=== PATIENT | male | born 1960 | race Caucasian/White ===

== ENCOUNTER → 2017-09-08 | Outpatient (CLI) | payer MEDICARE ==
[2017-09-08 11:59] LABS: HCT 44.2 % (39.0-53.0); HGB 15.3 gm/dL (13.0-17.5); MCHC 34.7 g/dL (31.0-37.0); MCV 89.3 fL (80.0-100.0); Mean Platelet Volume 7.7; Platelet Count 188 k/uL (150-450); RBC 4.95 m/uL (4.30-5.90); WBC 4.9 k/uL (3.8-10.6)
[2017-09-08 12:01] LABS: Appearance,Urine Clear (Clear); Bilirubin,Urine Negative (Negative); Blood,Urine Negative (Negative); Color,Urine Light Yellow; Glucose,Urine (UA) Negative (Negative); Ketones,Urine Negative (Negative); Leukocyte Esterase,Urine Negative (Negative); Nitrite,Urine Negative (Negative); Protein,Urine Negative (Negative); Specific Gravity,Urine 1.007 (1.001-1.035); Urobilinogen,Urine <2.0 mg/dL (<2.0)
[2017-09-08 12:12] LABS: INR 1.1 (<1.2); Partial Thromboplastin Time 24.5 sec (22.0-30.0); Prothrombin Time 10.3 sec (9.0-12.0)
[2017-09-08 12:22] LABS: ALT 59 U/L (21-72); AST 34 U/L (17-59); Albumin 4.3 g/dL (3.5-5.0); Alkaline Phosphatase 72 U/L (38-126); Anion Gap 11 mmol/L; Blood Urea Nitrogen 14 mg/dL (9-20); Calcium 9.7 mg/dL (8.4-10.2); Carbon Dioxide 29 mmol/L (22-30); Chloride 100 mmol/L (98-107); Glucose 91 mg/dL (74-99); Potassium 3.9 mmol/L (3.5-5.1); Sodium 140 mmol/L (137-145); Total Bilirubin 0.8 mg/dL (0.2-1.3); Total Protein 7.2 g/dL (6.3-8.2)
== END | disposition home or self-care (01) ==
LOC: LABPAT 10:56
PROVIDERS: ATTEND Orthopaedic Surgery
DX: Z01.812 Encounter for preprocedural laboratory examination (principal)
CPT/HCPCS: 36415; 80053; 81003; 85027; 85610; 85730; 87070

== ENCOUNTER 2017-09-15 07:30 | Inpatient (IN) | payer MEDICARE ==
[2017-09-08 14:22] VITALS: BMI 33.6
[~2017-09-15 07:30] MED LIST: ACETAMINOPHEN TAB 500 MG TAB PO ONE; MELOXICAM 7.5 MG TAB PO ONE; MIDAZOLAM 2 MG/2 ML VIAL IV PRN; MORPHINE SULFATE 4 MG/ML SYRINGE IV PRN; ROPIVACAINE 246.25 MG, EPINEPHrine 0.5 MG, KETOROLAC 30 MG, cloNIDine HCL/PF 80 MCG, WA... MISCELLANE ONE; TRANEXAMIC ACID 1,000 MG in SODIUM CHLORIDE 0.9% 50 ML IVPB ONE; ceFAZolin IN SWFI 2 GM/20 ML SYRINGE IVP ONE
[2017-09-15] MEDS ORDERED: LIDOCAINE 1% 20 ML VIAL (10MG/ML) FOR IV START INTRADERMA ONE (09:00)
[2017-09-15] MEDS: LACTATED RINGERS 1,000 ML IV SCH (09:00)
[2017-09-15] MEDS ORDERED: ONDANSETRON 4 MG/2 ML VIAL IVP STA (09:04)
[2017-09-15] MEDS ORDERED: DEXAMETHASONE SOD PHOSPHATE 10 MG/ML 1 ML VIAL IV ONE (09:04)
[2017-09-15] MEDS ORDERED: fentaNYL (PF) 50 MCG/ML 2 ML AMP ONE (09:05)
[2017-09-15] MEDS ORDERED: NA PHOS,M-B/NA PHOS,DI-BA 133 ML ENEMA RECTAL PRN (09:28)
[2017-09-15] MEDS ORDERED: hydrOXYzine PAMOATE 25 MG CAP PO PRN (09:28)
[2017-09-15] MEDS ORDERED: ONDANSETRON 4 MG/2 ML VIAL IVP PRN (09:28)
[2017-09-15] MEDS ORDERED: NALOXONE 0.4 MG/ML 1 ML VIAL IV PRN (09:28)
[2017-09-15] MEDS ORDERED: DIAZEPAM 5 MG TAB PO PRN ×2 (09:28)
[2017-09-15] MEDS ORDERED: HYDROcodone/APAP 5-325MG 1 EACH TAB PO PRN (09:28)
[2017-09-15] MEDS ORDERED: MAGNESIUM HYDROXIDE 2,400 MG/10 ML CUP PO PRN (09:28)
[2017-09-15] MEDS ORDERED: MORPHINE SULFATE/PF 10MG/10ML VL IVP PRN ×3 (09:28)
[2017-09-15] MEDS ORDERED: BISACODYL 10 MG SUPP RECTAL PRN (09:28)
[2017-09-15] MEDS ORDERED: PROPOFOL 10 MG/ML 20 ML VIAL IV ONE (10:06)
[2017-09-15] MEDS ORDERED: MIDAZOLAM 2 MG/2 ML VIAL ONE (10:06)
[2017-09-15] MEDS ORDERED: GLYCOPYRROLATE 0.2 MG/ML 2 ML VIAL ONE (10:06)
[2017-09-15] MEDS ORDERED: SODIUM CHLORIDE 0.9% 100 ML BAG ONE (10:06)
[2017-09-15] MEDS ORDERED: ePHEDrine SULFATE/0.9% NACL/PF 50 MG/5 ML SYRINGE IV ONE (10:06)
[2017-09-15] MEDS ORDERED: TRANEXAMIC ACID 1,000 MG/10 ML VIAL ONE (10:06)
[2017-09-15] MEDS ORDERED: ceFAZolin 3,000 MG in SODIUM CHLORIDE 0.9% IRRIGATIO 3,000 ML IRRIGATION ONE (10:44)
--- NOTE | 2017-09-15 11:50 | P.OP ---
Date of Procedure: 09/15/17 Preoperative Diagnosis: Severe osteoarthritis left knee Postoperative Diagnosis: Severe osteoarthritis left knee Procedure(s) Performed: Left total knee arthroplasty Implants: Cunningham [employer] Nephew Oxinium femoral component size 6, left posterior stabilized Cunningham [employer] Nephew Stormy II left nonporous tibial baseplate size 6 Cunningham [employer] Nephew size 9 mm Legion constrained articular insert, size 5-6 Cunningham [employer] Nephew Stormy II resurfacing patellar component, 32 mm x 7.5mm All components were cemented using Vanessa bone cement.. The articulation is Oxinium on polyethylene. Anesthesia: spinal Surgeon: Chaitanya Kruse Vocational Rehabilitation Counselor #1: Tahira Sher Estimated Blood Loss (ml): 50 Pathology: other (Bone and cartilage) Condition: stable Disposition: PACU Indications for Procedure: After failure of conservative treatment we discussed the surgical and nonsurgical treatment options at length. Patient wishes to proceed with a total knee arthroplasty. Complications specific to this procedure were discussed at length, including but not limited to infection, bleeding, stiffness , and nerve injury. Patient is aware of all these complications and informed consent was obtained Operative Findings: The operative findings are consistent with severe osteoarthritis of the left knee Description of Procedure: Patient was seen in the preoperative area consent was reviewed and operative site was marked with a skin marker. An adductor canal pain catheter was placed by anesthesia in the preoperative area. Patient was then brought to the operating room and given preoperative antibiotics intravenously. A spinal anesthetic was administered by the anesthesia department. A tourniquet was placed on the upper thigh and the lower extremity was prepped and draped in usual sterile fashion. A gram of transexamic acid was given. A universal timeout was then performed which confirmed the patient's name, surgical site, ALLERGIES, and consent. The lower extremity was then exsanguinated and tourniquet was inflated to 250 mmHg. A standard and anterior midline approach to the knee was performed. The skin and subcutaneous tissue was dissected down to the patellar tendon. A medial parapatellar arthrotomy was then performed. The knee was then extended, the patellar was everted, and the knee was again flexed. Anterior horns of both menisci were excised, and a release was performed to the posterior medial aspect of the knee. On gross visual inspection, there was complete loss of articular cartilage in the medial and patellofemoral joint spaces. There was also significant cartilage damage in the lateral compartment. There were multiple periarticular osteophytes which were then removed with a Ronguer. The femoral canal was then opened with the appropriate drill, and the intramedullary femoral cutting guide was then placed and set for 4 of valgus. The distal femoral cutting block was then pinned in place, and the distal femur was then cut. The cutting block was then removed and the cut was checked for flatness. Next, the sizing guide was then placed and set for 3 external rotation based off of the epicondylar axis and Whitesides line. After the femur was sized, the appropriate 4-in-1 cutting block was then pinned in place. The anterior condyles were cut without notching. The posterior and chamfer cuts were performed while protecting the collateral ligaments. The cutting block was then removed, and the femoral canal was plugged with autologous bone. Attention was then directed to the tibia. The remaining ACL was removed with a Ronguer, and the tibia was then gently subluxed forward with a large bent knee retractor. Any remaining menisci was excised. The posterior lateral corner was cauterized in order to cauterize the lateral geniculate artery. The extra medullary tibial cutting guide was then placed, set for the appropriate rotation , slope, and depth of resection. The proximal tibia cutting guide was then pinned in place. Proximal tibia was then cut and sized. Next trials were then placed with the appropriate-sized insert. The knee was able to fully extend and flex to 120. On stability testing, it was found that the MCL was quite deficient from his multiple injuries and prior surgeries. The box cutting guide was then placed over the femoral trial, and the box area was then reamed and broached. This was then trialed with a constrained insert. The knee was found to be stable throughout all range of motion with this insert. The knee was then extended, patella everted. Patella was then measured, and then using an osteotomy guide, the patella was cut at the appropriate level. The patella was then measured and drilled and the patella trial was then placed. The knee was then taken through range of motion with the patella trial and the patella tracked normally. The knee was then extended patella trial was then removed and the patella was everted. Knee was then flexed and lug holes were drilled through the femoral trial and the femoral trial was then removed. The tibial was then exposed, and the tibial broach guide was then pinned in place after it was set for the appropriate rotation to allow for the most coverage without overhang. The tibia was then reamed and broached. The cut surfaces of bone were then irrigated with pulsatile lavage. The posterior structures were injected with the ropivacaine solution. The knee was also irrigated with Irrisept solution. The components were then opened, the cement was mixed, and the components were then cemented in place. The cement was allowed to harden with the knee in full extension. While the cement was hardening, the remaining soft tissues were then injected with a ropivacaine solution, which consisted of 246.25 mg of ropivacaine, 0.5 mg of epinephrine, 30 mg of Toradol, 80 g of clonidine, and 48.45 mL of sterile water, for a total of 100 mL of fluid injected. After the cemented hardened. The tourniquet was released, and hemostasis was obtained. A second gram of transexamic acid was given. The knee was again irrigated. The knee was again taken through range of motion and found to be stable throughout all range of motion of 0-130 , and the patella tracked normally. The fascia was then closed with #2 strata fix suture. The subcutaneous tissue was closed with 3-0 Vicryl and 3-0 strata fix. Dermabond glue was used for the skin and placed with the knee in flexion. The patient was placed in a sterile silver dressing. Patient was then transferred to recovery room in stable condition. The mail handler assistant MARIOLA Woodruff was required due the complexity surgery and the need for a skilled surgical nurse practitioner. She assisted in positioning, draping, retraction, and closure of the wound.
--- NOTE | 2017-09-15 12:28 | XR ---
EXAMINATION TYPE: XR knee limited LT DATE OF EXAM: 09/15/2017 COMPARISON: NONE TECHNIQUE: Two views submitted HISTORY: Post op FINDINGS: There is a prosthetic knee in near anatomic alignment. There is soft tissue edema and emphysema. IMPRESSION: 1. Postoperative change. Appears in near-anatomic alignment
[2017-09-15] MEDS ORDERED: LACTATED RINGERS 1,000 ML IV ONE ×2 (12:36)
[2017-09-15] MEDS: HYDROcodone/APAP 5-325MG 1 EACH TAB PO PRN ×2 (13:47→20:04)
[2017-09-15] MEDS: MORPHINE SULFATE ER 30 MG TABLET PO SCH (14:55)
[2017-09-15] MEDS: ceFAZolin IN SWFI 2 GM/20 ML SYRINGE IVP SCH (17:20)
[2017-09-15] MEDS: ASPIRIN 325 MG TAB PO SCH (20:04)
[2017-09-15] MEDS: SODIUM CHLORIDE 0.9% 1,000 ML IV SCH (20:05)
[2017-09-15] MEDS ORDERED: MORPHINE SULFATE ER 30 MG TABLET PO SCH (21:00)
[2017-09-15] MEDS ORDERED: SENNOSIDES-DOCUSATE SODIUM 1 EACH TAB PO SCH (21:00)
[2017-09-15] MEDS ORDERED: HYDROcodone/APAP 10-325MG 1 EACH TAB PO SCH (21:00)
[2017-09-16] MEDS: LACTATED RINGERS 1,000 ML IV SCH (00:26)
[2017-09-16] MEDS: SODIUM CHLORIDE 0.9% 1,000 ML IV SCH ×2 (00:27→10:26)
[2017-09-16] MEDS: MORPHINE SULFATE ER 30 MG TABLET PO SCH (01:39)
[2017-09-16] MEDS: ceFAZolin IN SWFI 2 GM/20 ML SYRINGE IVP SCH (02:11)
[2017-09-16 02:53] VITALS: RESP 16
[2017-09-16] MEDS: HYDROcodone/APAP 5-325MG 1 EACH TAB PO PRN (06:09)
[2017-09-16] MEDS ORDERED: LEVOTHYROXINE 75 MCG TAB PO SCH (06:30)
[2017-09-16] MEDS: ASPIRIN 325 MG TAB PO SCH (07:35)
[2017-09-16 08:07] VITALS: BP 131/70; PULSE 72; TEMP 97.1
[2017-09-16 08:28] LABS: Basophils % (A) 0 %; Eosinophils % (A) 0 %; HCT 35.7 % (39.0-53.0); HGB 12.6 gm/dL (13.0-17.5); Lymphocytes # (A) 1.1 k/uL (1.0-4.8); Lymphocytes % (A) 8 %; MCH 31.2 pg (25.0-35.0); MCHC 35.4 g/dL (31.0-37.0); MCV 87.9 fL (80.0-100.0); Mean Platelet Volume 7.4; Monocytes # (A) 0.9 k/uL (0-1.0); Monocytes % (A) 7 %; Neutrophils # (A) 11.9 k/uL (1.3-7.7); Neutrophils % (A) 85 %; Platelet Count 198 k/uL (150-450); RBC 4.06 m/uL (4.30-5.90)
[2017-09-16] MEDS ORDERED: MELOXICAM 7.5 MG TAB PO SCH (09:00)
[2017-09-16] MEDS ORDERED: BISOPROLOL-HCTZ 10-6.25 MG 1 EACH TAB PO SCH (09:00)
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
== END 2017-09-16 12:20 | disposition home health service (06) | DRG 470 ==
LOC: 2ORMAIN 07:54 → 3SUR 12:10
PROVIDERS: ADMIT Orthopaedic Surgery; ATTEND Orthopaedic Surgery
PROC: 0SRD069 Replacement of Left Knee Joint with Oxidized Zirconium on Polyethylene Synthetic Substitute, Cemented, Open Approach (ICD-10-PCS; principal; 2017-09-15 09:45)
DX: M17.32 Unilateral post-traumatic osteoarthritis, left knee (principal); I11.9 Hypertensive heart disease without heart failure; E03.9 Hypothyroidism, unspecified; E66.9 Obesity, unspecified; G89.29 Other chronic pain; T14.90XS Injury, unspecified, sequela; W31.89XS Contact with other specified machinery, sequela; E78.5 Hyperlipidemia, unspecified; Z68.33 Body mass index [BMI] 33.0-33.9, adult; Z90.49 Acquired absence of other specified parts of digestive tract
CPT/HCPCS: 85025; 88300

== ENCOUNTER 2017-09-21 22:51 | Emergency (ER) | payer MEDICARE ==
[2017-09-21 23:03] VITALS: RESP 18
[2017-09-22] MEDS ORDERED: SODIUM CHLORIDE 0.9% 1,000 ML IV STA (00:05)
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
[2017-09-22 01:18] LABS: Basophils # (A) 0.1 k/uL (0-0.2); Basophils % (A) 1 %; Eosinophils # (A) 0.7 k/uL (0-0.7); Eosinophils % (A) 9 %; HCT 35.9 % (39.0-53.0); HGB 12.7 gm/dL (13.0-17.5); Lymphocytes # (A) 1.8 k/uL (1.0-4.8); Lymphocytes % (A) 24 %; MCH 31.2 pg (25.0-35.0); MCHC 35.5 g/dL (31.0-37.0); MCV 87.8 fL (80.0-100.0); Mean Platelet Volume 6.9; Monocytes # (A) 0.5 k/uL (0-1.0); Monocytes % (A) 7 %; Neutrophils # (A) 4.3 k/uL (1.3-7.7); Neutrophils % (A) 57 %; Platelet Count 306 k/uL (150-450); RBC 4.09 m/uL (4.30-5.90); RDW 13.2 % (11.5-15.5); WBC 7.6 k/uL (3.8-10.6)
[2017-09-22 01:19] LABS: Appearance,Urine Clear (Clear); Bilirubin,Urine Negative (Negative); Blood,Urine Trace (Negative); Color,Urine Yellow; Glucose,Urine (UA) Negative (Negative); Ketones,Urine Negative (Negative); Leukocyte Esterase,Urine Negative (Negative); Mucus,Urine Rare /hpf; Nitrite,Urine Negative (Negative); PH, Urine 5.5 (5.0-8.0); Protein,Urine Negative (Negative); RBC,Urine 1 /hpf (0-5); Specific Gravity,Urine 1.017 (1.001-1.035); Urobilinogen,Urine <2.0 mg/dL (<2.0); WBC,Urine 1 /hpf (0-5)
[2017-09-22 01:20] LABS: Partial Thromboplastin Time 24.6 sec (22.0-30.0); Prothrombin Time 9.6 sec (9.0-12.0)
[2017-09-22 01:25] LABS: ALT 53 U/L (21-72); AST 29 U/L (17-59); Albumin 3.6 g/dL (3.5-5.0); Alkaline Phosphatase 117 U/L (38-126); Anion Gap 9 mmol/L; Blood Urea Nitrogen 18 mg/dL (9-20); Calcium 9.1 mg/dL (8.4-10.2); Carbon Dioxide 31 mmol/L (22-30); Chloride 98 mmol/L (98-107); Glucose 104 mg/dL (74-99); Potassium 4.3 mmol/L (3.5-5.1); Sodium 138 mmol/L (137-145); Total Protein 6.3 g/dL (6.3-8.2)
[2017-09-22] MEDS ORDERED: MORPHINE SULF 5MG/10ML VL IVP STA (01:41)
[2017-09-22] MEDS ORDERED: CEPHALEXIN 500 MG CAP PO STA (01:42)
[2017-09-22] MEDS: IBUPROFEN 600 MG TAB PO STA ×2 (01:54→02:02)
[2017-09-22 01:57] VITALS: BP 139/63; PULSE 62; TEMP 99.2
== END 2017-09-22 02:19 | disposition home or self-care (01) ==
LOC: EC 22:51
DX: T81.4XXA Infection following a procedure, initial encounter (principal); L03.116 Cellulitis of left lower limb; I10 Essential (primary) hypertension; E07.9 Disorder of thyroid, unspecified; Z79.891 Long term (current) use of opiate analgesic; Z79.899 Other long term (current) drug therapy; Z96.652 Presence of left artificial knee joint; Z53.8 Procedure and treatment not carried out for other reasons
CPT/HCPCS: 36415; 80053; 85025; 85610; 85730; 81001; 87086; 93971; 99284; 96374; 96361; J2270

== ENCOUNTER → 2018-08-18 | Outpatient (CLI) | payer MEDICARE ==
--- NOTE | 2018-08-19 08:26 | XR ---
EXAMINATION TYPE: XR chest 2V DATE OF EXAM: 08/18/2018 COMPARISON: None INDICATION: Three-week cough TECHNIQUE: Frontal and lateral views of the chest are obtained. FINDINGS: The heart size is normal. The pulmonary vasculature is normal. The lungs are clear. IMPRESSION: 1. No acute pulmonary process.
== END | disposition home or self-care (01) ==
LOC: RADXRMAIN 17:00
PROVIDERS: ATTEND Family Medicine
DX: J20.8 Acute bronchitis due to other specified organisms (principal)
CPT/HCPCS: 71046

== ENCOUNTER → 2018-11-18 | Outpatient (CLI) | payer MEDICARE ==
--- NOTE | 2018-11-18 16:00 | CT ---
EXAMINATION TYPE: CT sinus wo con DATE OF EXAM: 11/18/2018 COMPARISON: None HISTORY: Allergic rhinitis CT DLP: 622.3 mGycm CONTRAST: 0 mL of Isovue 300 The paranasal sinuses are examined in the axial plane at 2 mm thick sections. Reconstructed images i n the coronal plane were obtained. There is a left kim bullosa. The maxillary sinuses are clear. The ethmoid air cells are clear. The sphenoid sinuses are clear. The frontal sinuses are clear. The septum is evaluated. There is septal deviation to the right. The ostiomeatal units are patent. IMPRESSIONS: 1. No acute or chronic sinusitis changes 2. Right septal deviation
== END | disposition home or self-care (01) ==
LOC: RADCTMAIN 15:36
PROVIDERS: ATTEND Internal Medicine Critical Care Medicine
DX: J34.2 Deviated nasal septum (principal); J30.9 Allergic rhinitis, unspecified
CPT/HCPCS: 70486

== ENCOUNTER → 2019-02-06 | Outpatient (CLI) | payer MEDICARE ==
--- NOTE | 2019-02-06 09:44 | CT ---
EXAMINATION TYPE: CT chest w con DATE OF EXAM: 02/06/2019 COMPARISON: HISTORY: Cough x [address] DLP: 407.9 mGycm Automated exposure control for dose reduction was used. CONTRAST: CT scan of the chest is performed with IV Contrast, patient injected with 100 mL of Isovue M300. FINDINGS: LUNGS: 4 mm nonspecific nodule mid left lung image 28 of 67. No additional nodules seen. No mass is i dentified. There is no pleural effusion or pneumothorax seen. The tracheobronchial tree is patent. MEDIASTINUM: There are no greater than 1 cm hilar or mediastinal lymph nodes. No pericardial effusi on is seen. Thoracic aorta is of normal caliber. The heart is not enlarged. UPPER ABDOMEN: Cholecystectomy clips noted. OTHER: No additional significant abnormality is seen. IMPRESSION: 1. No evidence for infiltrate atelectasis or pleural effusion. 2. Small 4 mm nodule of the mid left lung zone. Follow-up in 6 months advised.
== END | disposition home or self-care (01) ==
LOC: RADCTMAIN 08:21
PROVIDERS: ATTEND Internal Medicine Critical Care Medicine
DX: R91.1 Solitary pulmonary nodule (principal)
CPT/HCPCS: 71260; Q9967

== ENCOUNTER 2022-01-12 20:48 | Emergency (ER) | payer MEDICARE ==
[2022-01-12 21:11] VITALS: RESP 18
--- NOTE | 2022-01-12 21:46 | ED ---
General Adult HPI - General Chief complaint: Extremity Injury, Lower Stated complaint: Fall-R foot injury Time Seen by Provider: 01/12/22 21:44 Source: patient Mode of arrival: ambulatory Limitations: no limitations - History of Present Illness Initial comments: Patient presents to the ED with his for evaluation. Patient states that he accidentally twisted his right ankle while coming out of his boat this evening, and he states that he's been having right ankle pain since then. Patient denies any other injury or site of pain. Patient denies falling, head injury, focal neuro deficit, dyspnea, dizziness, or any other symptoms or complaints. Patient states that he took a dose of Motrin prior to coming to the ED, and he declines any further pain medication at this time. - Related Data Home Medications Medication Instructions Recorded Confirmed Bisoprolol/Hydrochlorothiazide 1 tab PO DAILY 09/08/17 09/15/17 [Bisoprolol-Hctz 10-6.25 mg Tab] Levothyroxine Sodium 150 mcg PO DAILY 09/08/17 09/15/17 Morphine Sulfate [Ms Contin] 30 mg PO Q12HR 09/08/17 09/15/17 Previous Rx's Medication Instructions Recorded Aspirin 325 mg PO BID #60 tab 09/16/17 HYDROcodone/APAP 10-325MG [[place] 1 tab PO Q6H PRN #90 tab 09/16/17 10-325] Sennosides [Senokot] 1 tab PO BID #60 tablet 09/16/17 Cephalexin [Keflex] 500 mg PO Q12HR #20 cap 09/22/17 Allergies Allergy/AdvReac Type Severity Reaction Status Date / Time No Known Allergies Allergy Verified 09/21/17 23:02 Review of Systems ROS Statement: Those systems with pertinent positive or pertinent negative responses have been documented in the HPI. ROS Other: All systems not noted in ROS Statement are negative. 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 History of Any Multi-Drug Resistant Organisms: None Reported Past Surgical History: Cholecystectomy, Orthopedic Surgery Additional Past Surgical History / Comment(s): 13 surgeries to left leg, rotator cuff repair rt shoulder, ACL repair lt knee, tlk Past Anesthesia/Blood Transfusion Reactions: No Reported Reaction Past Psychological History: No Psychological Hx Reported Past Alcohol Use History: Rare Past Drug Use History: None Reported - Past Family History Daughter(s) Family Medical History: Pulmonary Embolus General Exam Limitations: no limitations General appearance: alert, in no apparent distress Head exam: Present: atraumatic, normocephalic Eye exam: Present: normal appearance ENT exam: Present: mucous membranes moist Respiratory exam: Present: normal lung sounds bilaterally. Absent: respiratory distress, wheezes, rales, rhonchi, stridor Cardiovascular Exam: Present: regular rate, normal rhythm, normal heart sounds, other (Normal dorsalis pedis pulses bilaterally) Extremities exam: Present: other (Right lateral ankle swelling and tenderness) Neurological exam: Present: alert, oriented X3. Absent: motor sensory deficit Psychiatric exam: Present: normal affect, normal mood Skin exam: Present: warm, dry, intact, normal color Course Vital Signs 01/12/22 21:07 Temperature 98.4 F Pulse Rate 71 Respiratory 18 Rate Blood Pressure 130/69 O2 Sat by Pulse 96 Oximetry Procedures - Orthopedic Splinting/Casting Injury #1 Side: right Lower Extremity Injury Location: ankle Lower Extremity Immobilizer: stirrup splint Other Orthopedic Equipment: crutches Medical Decision Making - Medical Decision Making Patient is noted to have a spiral fracture of his distal right fibula on x-ray. Patient's right lower leg was splinted in the ED myself. Patient was provided with crutches in the ED. Patient states that he will follow up with his orthopedic surgeon (Dr. Kruse). Will discharge patient home with his at this time. Patient was counseled about fibular fractures, and he was clearly explained return and follow-up instructions. Patient was also provided with a Tylenol #3 starter pack from the ED. - Radiology Data Right foot and ankle x-rays: Spiral fracture through distal right fibula. Disposition Clinical Impression: Right fibular fracture Disposition: HOME SELF-CARE Condition: Stable Instructions (If sedation given, give patient instructions): Leg Fracture (ED), Crutch Instructions (ED), Splint Care (ED) Additional Instructions: Return to the ER should you develop new or worsening pain or symptoms. Follow up closely with your primary care provider, as well as your orthopedic surgeon. Is patient prescribed a controlled substance at d/c from ED?: No Referrals: Kapil Alcazar DO [Primary Care Provider] - 1-2 days Chaitanya Kruse DO [Doctor of Osteopathic Medicine] - 1-2 days Time of Disposition: 22:10
--- NOTE | 2022-01-12 21:47 | XR ---
EXAMINATION TYPE: XR foot complete RT, XR ankle complete RT DATE OF EXAM: 01/12/2022 9:40 PM INDICATION: Patient age:Male; 61 years old; Reason for study: injury; COMPARISON: None TECHNIQUE: Frontal, lateral and oblique views of the right foot with frontal oblique and lateral view s of the right ankle. FINDINGS: There is no acute spiral fracture of the distal fibula. No additional fractures identified. There is plantar calcaneal spurring and Achilles enthesophyte. IMPRESSION: Spiral fracture through the distal right fibula.
[2022-01-12] MEDS ORDERED: ACET/COD 300 MG/30 MG STARTER PACK 6 TAB BTL PO STA (22:07)
[2022-01-12 23:35] VITALS: BP 117/81; PULSE 72; TEMP 98.2
== END 2022-01-12 23:31 | disposition home or self-care (01) ==
LOC: EC 20:48
DX: S82.401A Unspecified fracture of shaft of right fibula, initial encounter for closed fracture (principal); E07.9 Disorder of thyroid, unspecified; I10 Essential (primary) hypertension; Z79.899 Other long term (current) drug therapy; W01.0XXA Fall on same level from slipping, tripping and stumbling without subsequent striking against object, initial encounter
CPT/HCPCS: 29505; 99284

== ENCOUNTER → 2023-07-14 | Outpatient (CLI) | payer MEDICARE ==
--- NOTE | 2023-07-14 08:38 | XR ---
EXAMINATION TYPE: XR chest 2V DATE OF EXAM: 07/14/2023 COMPARISON: 08/18/2018 INDICATION: Cough, fever TECHNIQUE: Frontal and lateral views of the chest are obtained. FINDINGS: The heart size is normal. The pulmonary vasculature is normal. There may be some mild increased right lower lobe lung markings posterior medially. Correlate for dev eloping pneumonia or atelectasis.. IMPRESSION: 1. Mild posterior medial lung base increased lung markings. Correlate for atelectasis or pneumonia
== END | disposition home or self-care (01) ==
LOC: RADXRMAIN 08:10
PROVIDERS: ATTEND Family Medicine
DX: R91.8 Other nonspecific abnormal finding of lung field (principal); R05.9 Cough, unspecified; R50.9 Fever, unspecified
CPT/HCPCS: 71046

== ENCOUNTER 2023-07-21 09:28 | Inpatient (IN) | payer MEDICARE ==
[2023-07-21] MEDS ORDERED: SODIUM CHLORIDE 0.9% 500 ML 500 ML IV STA (10:02)
[2023-07-21] MEDS ORDERED: methylPREDNISolone SOD SUCCI 125 MG/2 ML VIAL IV STA (10:02)
[2023-07-21] MEDS ORDERED: IPRATROPIUM-ALBUTEROL 3 ML NEB INHALATION STA (10:02)
--- NOTE | 2023-07-21 10:23 | XR ---
EXAMINATION TYPE: XR chest 2V DATE OF EXAM: 07/21/2023 10:19 AM COMPARISON: Chest radiographs from 07/14/2023 TECHNIQUE: XR chest 2V Frontal and lateral views of the chest. CLINICAL INDICATION:Male, 63 years old with history of difficulty breathing; FINDINGS: Lungs/Pleura: Slightly increased bibasilar patchy airspace opacities. No pneumothorax or pleural effu alex. Pulmonary vascularity: Unremarkable. Heart/mediastinum: Cardiomediastinal silhouette is unremarkable. Musculoskeletal: No acute osseous pathology. IMPRESSION: Slightly increased bibasilar patchy airspace opacities concerning for pneumonia.
[2023-07-21 10:30] LABS: Basophils % (A) 0 %; Eosinophils # (A) 0.5 k/uL (0-0.7); Eosinophils % (A) 7 %; HGB 16.6 gm/dL (13.0-17.5); Lymphocytes # (A) 0.5 k/uL (1.0-4.8); Lymphocytes % (A) 6 %; MCH 32.2 pg (25.0-35.0); MCHC 35.4 g/dL (31.0-37.0); Mean Platelet Volume 7.4; Monocytes # (A) 0.4 k/uL (0-1.0); Monocytes % (A) 5 %; Neutrophils % (A) 81 %; Platelet Count 391 k/uL (150-450); RBC 5.16 m/uL (4.30-5.90); RDW 12.2 % (11.5-15.5); WBC 7.5 k/uL (3.8-10.6)
--- NOTE | 2023-07-21 10:31 | ED ---
General Adult HPI - General Chief complaint: Shortness of Breath Stated complaint: CANDICE Time Seen by Provider: 07/21/23 09:44 Source: patient, RN notes reviewed Mode of arrival: wheelchair Limitations: no limitations - History of Present Illness Initial comments: 63-year-old male presents emergency department complaint shortness of breath. He states has been sick for last 2 weeks he states he was diagnosed with influenza A, pneumonia. Patient states he was on steroids, antibiotics, breathing treatments for his asthma. Patient states that he had no improvement. He did see his PCP on . Patient continued to have low pulse ox at home with no improvement advised to come in. Patient denies any chest pain no abdominal pain states has been having some diarrhea. - Related Data Home Medications Medication Instructions Recorded Confirmed Bisoprolol/Hydrochlorothiazide 1 tab PO DAILY 09/08/17 09/15/17 [Bisoprolol-Hctz 10-6.25 mg Tab] Levothyroxine Sodium 150 mcg PO DAILY 09/08/17 09/15/17 Morphine Sulfate [Ms Contin] 30 mg PO Q12HR 09/08/17 09/15/17 Previous Rx's Medication Instructions Recorded Aspirin 325 mg PO BID #60 tab 09/16/17 HYDROcodone/APAP 10-325MG [[place] 1 tab PO Q6H PRN #90 tab 09/16/17 10-325] Sennosides [Senokot] 1 tab PO BID #60 tablet 09/16/17 Cephalexin [Keflex] 500 mg PO Q12HR #20 cap 09/22/17 Allergies Allergy/AdvReac Type Severity Reaction Status Date / Time No Known Allergies Allergy Verified 07/21/23 09:36 Review of Systems ROS Statement: Those systems with pertinent positive or pertinent negative responses have been documented in the HPI. ROS Other: All systems not noted in ROS Statement are negative. 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 History of Any Multi-Drug Resistant Organisms: None Reported Past Surgical History: Cholecystectomy, Orthopedic Surgery Additional Past Surgical History / Comment(s): 13 surgeries to left leg, rotator cuff repair rt shoulder, ACL repair lt knee, tlk Past Anesthesia/Blood Transfusion Reactions: No Reported Reaction Past Psychological History: No Psychological Hx Reported Past Alcohol Use History: Rare Past Drug Use History: None Reported - Past Family History Daughter(s) Family Medical History: Pulmonary Embolus General Exam Limitations: no limitations General appearance: alert, in no apparent distress Head exam: Present: atraumatic, normocephalic, normal inspection Eye exam: Present: normal appearance, PERRL, EOMI. Absent: scleral icterus, conjunctival injection, periorbital swelling ENT exam: Present: normal exam, normal oropharynx, mucous membranes moist Neck exam: Present: normal inspection. Absent: tenderness, meningismus, lymphadenopathy Respiratory exam: Present: wheezes, rhonchi. Absent: normal lung sounds bilaterally, respiratory distress, rales, stridor Cardiovascular Exam: Present: normal rhythm, tachycardia, normal heart sounds. Absent: systolic murmur, diastolic murmur, rubs, gallop, clicks GI/Abdominal exam: Present: soft, normal bowel sounds. Absent: distended, ten derness, guarding, rebound, rigid Course Vital Signs 07/21/23 07/21/23 07/21/23 09:33 10:45 11:23 Temperature 98.1 F Pulse Rate 114 H 96 87 Respiratory 20 18 Rate Blood Pressure 145/89 141/78 O2 Sat by Pulse 88 L 91 L Oximetry 07/21/23 11:34 Temperature Pulse Rate 88 Respiratory Rate Blood Pressure O2 Sat by Pulse Oximetry EKG Findings - EKG Comments: EKG Findings:: EKG performed at 9: 49 sinus rhythm rate of 98 LA 174 QRS 98 QT /QTc 325/380 - EKG Results: EKG: interpreted by [facility] Medical Decision Making - Medical Decision Making Was pt. sent in by a medical professional or institution (, PA, ACQUISITION LEAD, urgent care, hospital, or retirement...) When possible be specific @ -No Did you speak to anyone other than the patient for history (EMS, parent, family, police, friend...)? What history was obtained from this source @ -No Did you review nursing and triage notes (agree or disagree)? Why? @ -I reviewed and agree with nursing and triage notes Were old charts reviewed (outside hosp., previous admission, EMS record, old EKG, old radiological studies, urgent care reports/EKG's, retirement records)? Report findings @ -No old charts were reviewed Differential Diagnosis (chest pain, altered mental status, abdominal pain women, abdominal pain men, vaginal bleeding, weakness, fever, dyspnea, syncope, headache, dizziness, GI bleed, back pain, seizure, CVA, palpatations, mental health, musculoskeletal)? @ -Differential Dyspnea: Coronary syndrome, arrhythmia, tamponade, asthma, COPD, pulmonary embolism, pneumonia, pneumothorax, pulmonary effusion, anaphylaxis, diabetic ketoacidosis, flailed chest, pulmonary contusion, diaphragmatic rupture, anemia, neuromuscular, this is not meant to be an all-inclusive list. EKG interpreted by me (3pts min.). @ -As above X-rays interpreted by me (1pt min.). @ -Chest x-ray shows bibasilar infiltrates CT interpreted by me (1pt min.). @ -None done U/S interpreted by me (1pt. min.). @ -None done What testing was considered but not performed or refused? (CT, X-rays, U/S, labs)? Why? @ -None What meds were considered but not given or refused? Why? @ -None Did you discuss the management of the patient with other professionals (professionals i.e. , PA, ACQUISITION LEAD, lab, RT, psych nurse, high school social studies teacher, square cutter, teacher, regulatory compliance officer, case briefer)? Give summary @ -Dr. Alcazar for admission secondary to hypoxia, asthma exacerbation, pneumonia Was smoking cessation discussed for >3mins.? @ -No Was critical care preformed (if so, how long)? @ -No Were there social determinants of health that impacted care today? How? (Homelessness, low income, unemployed, alcoholism, drug addiction, tra nsportation, low edu. Level, literacy, decrease access to med. care, detention, rehab)? @ -No Was there de-escalation of care discussed even if they declined (Discuss DNR or withdrawal of care, Hospice)? DNR status @ -No What co-morbidities impacted this encounter? (DM, HTN, Smoking, COPD, CAD, Cancer, CVA, ARF, Chemo, Hep., AIDS, mental health diagnosis, sleep apnea, morbid obesity)? @ -[Asthma Was patient admitted / discharged? Hospital course, mention meds given and route, prescriptions, significant lab abnormalities, going to OR and other pertinent info. @ -Admitted patient presented hypoxic 88 to 89% patient does have diffuse wheezing, pneumonia changes on x-ray. Patient will be admitted for treatment of pneumonia, asthma exacerbation and hydration. Patient had mild hyponatremia Undiagnosed new problem with uncertain prognosis? @ -No Drug Therapy requiring intensive monitoring for toxicity (Heparin, Nitro, Insulin, Cardizem)? @ -No Were any procedures done? @ -No Diagnosis/symptom? @ -[Pneumonia, asthma exacerbation, hypoxia Acute, or Chronic, or Acute on Chronic? @ -Acute Uncomplicated (without systemic symptoms) or Complicated (systemic symptoms)? @ -Uncomplicated Side effects of treatment? @ -[No Exacerbation, Progression, or Severe Exacerbation? @ -Asthma exacerbation Poses a threat to life or bodily function? How? (Chest pain, [place], PR, pneumonia, PE, COPD, DKA, ARF, appy, cholecystitis, CVA, Diverticulitis, Homicidal, Suicidal, threat to staff... and all critical care pts) @ -[Yes, pneumonia, asthma exacerbation - Lab Data Result diagrams: 07/21/23 10:07 07/21/23 10:07 Lab Results 07/21/23 07/21/23 07/21/23 Range/Units 10:07 10:07 10:07 WBC 7.5 (3.8-10.6) k/uL RBC 5.16 (4.30-5.90) m/uL Hgb 16.6 (13.0-17.5) gm/dL Hct 47.0 (39.0-53.0) % MCV 91.0 (80.0-100.0) fL MCH 32.2 (25.0-35.0) pg MCHC 35.4 (31.0-37.0) g/dL RDW 12.2 (11.5-15.5) % Plt Count 391 (150-450) k/uL MPV 7.4 Neutrophils % 81 % Lymphocytes % 6 % Monocytes % 5 % Eosinophils % 7 % Basophils % 0 % Neutrophils # 6.0 (1.3-7.7) k/uL Lymphocytes # 0.5 L (1.0-4.8) k/uL Monocytes # 0.4 (0-1.0) k/uL Eosinophils # 0.5 (0-0.7) k/uL Basophils # 0.0 (0-0.2) k/uL PT 11.2 (10.0-12.5) sec INR 1.0 (<1.2) APTT 22.6 (22.0-30.0) sec Sodium 129 L (137-145) mmol/L Potassium 4.4 (3.5-5.1) mmol/L Chloride 99 (98-107) mmol/L Carbon Dioxide 22 (22-30) mmol/L Anion Gap 8 mmol/L BUN 13 (9-20) mg/dL Creatinine 0.77 (0.66-1.25) mg/dL Est GFR (CKD-EPI)AfAm >90 (>60 ml/min/1.73 sqM) Est GFR (CKD-EPI)NonAf >90 (>60 ml/min/1.73 sqM) Glucose 208 H (74-99) mg/dL Plasma Lactic Acid [place] (0.7-2.0) mmol/L Calcium 8.1 L (8.4-10.2) mg/dL Magnesium 2.2 (1.6-2.3) mg/dL Total Bilirubin 2.1 H (0.2-1.3) mg/dL AST 38 (17-59) U/L ALT 33 (4-49) U/L Alkaline Phosphatase 67 (38-126) U/L Troponin I (0.000-0.034) ng/mL NT-Pro-B Natriuret Pep <20 pg/mL Total Protein 7.0 (6.3-8.2) g/dL Albumin 3.4 L (3.5-5.0) g/dL 07/21/23 07/21/23 Range/Units 10:07 10:07 WBC (3.8-10.6) k/uL RBC (4.30-5.90) m/uL Hgb (13.0-17.5) gm/dL Hct (39.0-53.0) % MCV (80.0-100.0) fL MCH (25.0-35.0) pg MCHC (31.0-37.0) g/dL RDW (11.5-15.5) % Plt Count (150-450) k/uL MPV Neutrophils % % Lymphocytes % % Monocytes % % Eosinophils % % Basophils % % Neutrophils # (1.3-7.7) k/uL Lymphocytes # (1.0-4.8) k/uL Monocytes # (0-1.0) k/uL Eosinophils # (0-0.7) k/uL Basophils # (0-0.2) k/uL PT (10.0-12.5) sec INR (<1.2) APTT (22.0-30.0) sec Sodium (137-145) mmol/L Potassium (3.5-5.1) mmol/L Chloride (98-107) mmol/L Carbon Dioxide (22-30) mmol/L Anion Gap mmol/L BUN (9-20) mg/dL Creatinine (0.66-1.25) mg/dL Est GFR (CKD-EPI)AfAm (>60 ml/min/1.73 sqM) Est GFR (CKD-EPI)NonAf (>60 ml/min/1.73 sqM) Glucose (74-99) mg/dL Plasma Lactic Acid [place] 1.4 (0.7-2.0) mmol/L Calcium (8.4-10.2) mg/dL Magnesium (1.6-2.3) mg/dL Total Bilirubin (0.2-1.3) mg/dL AST (17-59) U/L ALT (4-49) U/L Alkaline Phosphatase (38-126) U/L Troponin I <0.012 (0.000-0.034) ng/mL NT-Pro-B Natriuret Pep pg/mL Total Protein (6.3-8.2) g/dL Albumin (3.5-5.0) g/dL Disposition Clinical Impression: Pneumonia, Asthma exacerbation, Hypoxia Disposition: ADMITTED IP TO THIS HOSP Condition: Fair Referrals: Kapil Alcazar DO [Primary Care Provider] - 1-2 days Time of Disposition: 11:41
[2023-07-21 10:44] LABS: Partial Thromboplastin Time 22.6 sec (22.0-30.0); Prothrombin Time 11.2 sec (10.0-12.5)
[2023-07-21 10:48] LABS: ALT 33 U/L (4-49); AST 38 U/L (17-59); African American GFR (CKD) >90 (>60 ml/min/1.73 sqM); Albumin 3.4 g/dL (3.5-5.0); Alkaline Phosphatase 67 U/L (38-126); Anion Gap 8 mmol/L; Blood Urea Nitrogen 13 mg/dL (9-20); Calcium 8.1 mg/dL (8.4-10.2); Carbon Dioxide 22 mmol/L (22-30); Chloride 99 mmol/L (98-107); Glucose 208 mg/dL (74-99); Magnesium 2.2 mg/dL (1.6-2.3); Non-African American GFR(CKD) >90 (>60 ml/min/1.73 sqM); Sodium 129 mmol/L (137-145); Total Bilirubin 2.1 mg/dL (0.2-1.3)
[2023-07-21 10:52] LABS: Potassium 4.4 mmol/L (3.5-5.1)
[2023-07-21 10:54] LABS: NT-Pro-B-Type Natriuretic Pept <20 pg/mL
[2023-07-21] MEDS ORDERED: PNEUMONIA PROTOCOL UTILIZED 1 EACH MISC PO PRN (11:44)
[2023-07-21] MEDS ORDERED: ACETAMINOPHEN TAB 325 MG TAB PO PRN (11:44)
[2023-07-21] MEDS ORDERED: AZITHROMYCIN 500 MG in SODIUM CHLORIDE 0.9% 250 ML IVPB STA (11:44)
[2023-07-21] MEDS: IPRATROPIUM-ALBUTEROL 3 ML NEB INHALATION SCH ×3 (12:19→23:49)
[2023-07-21] MEDS: SODIUM CHLORIDE 0.9% 1,000 ML IV SCH (12:31)
[2023-07-22] MEDS: SODIUM CHLORIDE 0.9% 1,000 ML IV SCH ×2 (00:17→16:32)
--- NOTE | 2023-07-22 01:49 | P.CNPUL ---
History of Present Illness Consult date: 07/22/23 Requesting physician: Chaitanya Olvera Reason for consult: pneumonia Chief complaint: Shortness of breath History of present illness: I am seeing this patient in consultation today July 22, 2023 in the emergency room after he tested positive for influenza A outpatient 2 weeks ago, and has developed worsening shortness of breath. Patient is a 63-year-old white male with past medical history significant for moderate persistent asthma, hypothyroidism, diabetes mellitus, hypertension. His primary care provider is Dr. Alcazar. He does follow with Dr. Armstrong in the pulmonary office for management of his cough variant asthma. Is maintained on a combination of Symbicort inhaler and as needed Ventolin HFA rescue inhaler. Patient states that approximately 2 weeks ago he started having URI-like symptoms including a nonproductive cough, nasal drainage, fever. He also had some self-limiting d iarrhea. He went to Dr. Alcazar office, and tested positive for influenza A. He is unsure if he was treated with Tamiflu. Since then, the patient has had worsening shortness of breath. He did have a chest x-ray done July 14, which showed a possible left lower lobe infiltrate. It is unclear if the patient was treated outpatient for pneumonia, as the patient is unsure what medications he was placed on. He denies any chest pain, hemoptysis, or sputum production. He did present to the emergency room yesterday morning for worsening shortness of breath. He is currently sitting up in the stretcher, on 3 L/min nasal cannula, in no acute distress. Chest x-ray demonstrates bibasilar infiltrates, concerning for superimposed bacterial pneumonia. CBC on arrival is unremarkable. No leukocytosis. BMP has a sodium of 129, potassium 4.4, chloride 99, serum bicarb 22, BUN 13, creatinine 0.77, glucose 208. Normal saline infusing at 75 mL/h. Lactic acid level 1.4. Troponin less than 0.012. NT proBNP not elevated. Patient has been started on accommodation of azithromycin and Rocephin. He is currently afebrile. Hemodynamically stable. Review of Systems REVIEW OF SYSTEMS: CONSTITUTIONAL: Denies any recent significant weight loss or weight gain. EYES: Denies change in vision. EARS, NOSE, MOUTH, THROAT: Denies headaches, denies sore throat. CARDIOVASCULAR: Denies chest pain, palpitations or syncopal episodes. RESPIRATORY: Den see HPI GASTROINTESTINAL: Admits reduced appetite and self-limiting diarrhea. Denies any nausea, vomiting, abdominal pain. GENITOURINARY: Denies hematuria, denies infections. MUSKULOSKELETAL: Denies pain, denies swelling. INTEGUMENTARY: Denies rash, denies eczema. NEUROLOGICAL: Denies recent memory loss, no recent seizure activity. PSYCHIATRIC: Denies anxiety, denies depression. 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 History of Any Multi-Drug Resistant Organisms: None Reported Past Surgical History: Cholecystectomy, Orthopedic Surgery Additional Past Surgical History / Comment(s): 13 surgeries to left leg, rotator cuff repair rt shoulder, ACL repair lt knee, tlk Past Anesthesia/Blood Transfusion Reactions: No Reported Reaction Past Psychological History: No Psychological Hx Reported Past Alcohol Use History: Rare Past Drug Use History: None Reported - Past Family History Daughter(s) Family Medical History: Pulmonary Embolus Medications and Allergies Home Medications Medication Instructions Recorded Confirmed Type Bisoprolol/Hydrochlorothiazide 1 tab PO DAILY 09/08/17 07/21/23 History [Bisoprolol-Hctz 10-6.25 mg Tab] Levothyroxine Sodium 150 mcg PO DAILY 09/08/17 07/21/23 History Albuterol Sulfate [Albuterol 2 puff PO RT-QID PRN 07/21/23 07/21/23 History Sulfate Hfa] Budesonide-Formot 160-4.5 Mcg 2 puff INHALATION RT-BID 07/21/23 07/21/23 History [Symbicort 160-4.5 Mcg Inhaler] Cetirizine HCl [Zyrtec] 10 mg PO DAILY 07/21/23 07/21/23 History Ibuprofen [Motrin] 800 mg PO Q8H PRN 07/21/23 07/21/23 History Losartan [Cozaar] 50 mg PO DAILY 07/21/23 07/21/23 History Montelukast [Singulair] 10 mg PO HS 07/21/23 07/21/23 History Omeprazole [PriLOSEC] 20 mg PO HS 07/21/23 07/21/23 History metFORMIN HCL 500 mg PO HS 07/21/23 07/21/23 History Allergies Allergy/AdvReac Type Severity Reaction Status Date / Time No Known Allergies Allergy Verified 07/21/23 09:36 Physical Exam Vitals: Vital Signs Temp Pulse Resp BP Pulse Ox 07/22/23 00:00 86 18 180/79 94 L 07/21/23 19:36 98 07/21/23 19:27 96 07/21/23 18:49 75 20 151/91 94 L 07/21/23 16:57 102 H 07/21/23 16:46 100 93 L 07/21/23 12:27 94 L 07/21/23 12:26 85 20 142/79 90 L 07/21/23 11:34 88 07/21/23 11:23 87 07/21/23 10:45 96 18 141/78 91 L 07/21/23 09:33 98.1 F 114 H 20 145/89 88 L Intake and Output 07/21/23 07/21/23 07/22/23 14:59 22:59 06:59 Other: Weight 108.862 kg GENERAL EXAM: Alert, 63-year-old white male, comfortable in no apparent distress . HEAD: Normocephalic and atraumatic EYES: Normal reaction of pupils, equal size. NOSE: Clear with pink turbinates. THROAT: No erythema or exudates. NECK: No masses, no JVD. CHEST: No chest wall deformity. LUNGS: Equal air entry with bibasilar inspiratory crackles. No wheeze, rhonchi or dullness. On 3 L/min nasal cannula. No conversational dyspnea or accessory muscle use.. CVS: S1 and S2 normal with no audible murmur, regular rhythm. No extra heart sounds ABDOMEN: No hepatosplenomegaly, active bowel sounds, no guarding or rigidity. SPINE: No scoliosis or deformity SKIN: No rashes CENTRAL NERVOUS SYSTEM: No focal deficits, tone is normal in all 4 extremities. EXTREMITIES: There is no peripheral edema, clubbing, or cyanosis. Peripheral pulses are intact. Results - Laboratory Findings CBC and BMP: 07/21/23 10:07 07/21/23 10:07 PT/INR, D-dimer PT 11.2 sec (10.0-12.5) 07/21/23 10:07 INR 1.0 (<1.2) 07/21/23 10:07 Abnormal lab findings: Abnormal Labs 07/21/23 07/21/23 10:07 10:07 Lymphocytes # 0.5 L Sodium 129 L Glucose 208 H Calcium 8.1 L Total Bilirubin 2.1 H Albumin 3.4 L - Diagnostic Findings Chest x-ray: image reviewed Assessment and Plan Assessment: Acute hypoxemic respiratory failure, currently on 3 L/min nasal cannula, secondary to suspected bibasilar community-acquired pneumonia. Chest x-ray on arrival demonstrates bibasilar infiltrates, worsening from recent chest x-ray done on July 14. Recent influenza A infection, treated outpatient Moderate persistent asthma, not in exacerbation, normal maintained on combination of Symbicort inhaler twice daily and as needed Ventolin HFA Diabetes mellitus type 2 Hypothyroidism Hypertension Obesity, with a BMI of 37.6 kg/m Plan: Patient's medications, labs, chest x-ray reviewed Continue supplemental oxygen Patient has been started on empiric antibiotics. Repeat viral screen Asthma does not seem to be in exacerbation on my evaluation Restart Symbicort maintenance inhaler and continue DuoNebs [id number] Home medications have been restarted We will continue to follow I have personally seen and examined the patient, performed the documentation and the assessment and plan as written. Number of minutes spent on the visit:20 Time with Patient: Greater than 30
[2023-07-22] MEDS: LEVOTHYROXINE 75 MCG TAB PO SCH (05:52)
--- NOTE | 2023-07-22 07:36 | XR ---
EXAMINATION TYPE: XR chest 2V DATE OF EXAM: 07/22/2023 6:28 AM COMPARISON: Chest radiographs from 07/21/2023 TECHNIQUE: XR chest 2V Frontal and lateral views of the chest. CLINICAL INDICATION:Male, 63 years old with history of pneumonia; FINDINGS: FINDINGS: Lungs/Pleura: Similar bibasilar patchy reticular airspace opacities. No pneumothorax or pleural effus ion. Pulmonary vascularity: Unremarkable. Heart/mediastinum: Cardiomediastinal silhouette is unremarkable. Musculoskeletal: No acute osseous pathology. IMPRESSION: Similar bibasilar patchy airspace opacities concerning for pneumonia.
[2023-07-22] MEDS: SYMBICORT 160-4.5 MCG INHALER INHALATION SCH ×2 (08:45→18:12)
[2023-07-22] MEDS: IPRATROPIUM-ALBUTEROL 3 ML NEB INHALATION SCH ×4 (08:45→18:12)
[2023-07-22] MEDS: LOSARTAN 50 MG TAB PO SCH (09:18)
[2023-07-22] MEDS: LORATADINE 10 MG TAB PO SCH (09:18)
[2023-07-22] MEDS: predniSONE 10 MG TAB PO SCH (09:18)
[2023-07-22] MEDS: BISOPROLOL-HCTZ 10-6.25 MG 1 EACH TAB PO SCH (09:25)
[2023-07-22] MEDS ORDERED: IPRATROPIUM-ALBUTEROL 3 ML NEB INHALATION PRN (10:42)
[2023-07-22] MEDS: AZITHROMYCIN 500 MG in SODIUM CHLORIDE 0.9% 250 ML IVPB SCH (10:45)
--- NOTE | 2023-07-22 10:45 | P.HPIM ---
History of Present Illness H&P Date: 07/22/23 Chief Complaint: Dyspnea, hypoxia This is a 63-year-old gentleman with past medical history significant for moderate persistent asthma, diabetes mellitus, hypothyroidism, hypertension, recent pneumonia and influenza A. Reports 2 weeks ago he was treated for his pneumonia at primary's office, Dr. Alcazar. PCP states patient received a Z-Gilbert, 2 g Rocephin IM and Medrol Dosepak. Swabbed for influenza A, sent out on a Friday, unfortunately results were not received until the following Friday and patient did not receive Tamiflu. Patient reports compliance with medication r egime but dyspnea worsens, no improvement with low pulse ox read in the 80s and proceeded to the ER. On admission, 88% on room air. Currently maintaining O2 sats in the low 90s on 3 L nasal cannula. Reports nonproductive cough .denies any chest pain, palpitations. Denies any lightheadedness, dizziness or focal deficits. Denies nausea, had some diarrhea which has resolved. denies abdominal pain. Chest x-ray reported slightly increased bibasilar patchy airspace opacities concerning for pneumonia. Repeat chest x-ray reported similar bibasilar patchy airspace opacities concerning for pneumonia. Afebrile. Lactic acid 1.4. hematology unremarkable. Sodium 130, potassium 4.2, bicarb 23, BUN 18, creatinine 0.76, magnesium 2.2. proBNP within normal limits. blood sugars controlled. Influenza type a detected. Negative for influenza type B, RSV, COVID. Maintained on IV Rocephin and azithromycin. Review of Systems ROS Statement: Those systems with pertinent positive or pertinent negative responses have been documented in the HPI. ROS Other: All systems not noted in ROS Statement are negative. 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 History of Any Multi-Drug Resistant Organisms: None Reported Past Surgical History: Cholecystectomy, Orthopedic Surgery Additional Past Surgical History / Comment(s): 13 surgeries to left leg, rotator cuff repair rt shoulder, ACL repair lt knee, tlk Past Anesthesia/Blood Transfusion Reactions: No Reported Reaction Past Psychological History: No Psychological Hx Reported Past Alcohol Use History: Rare Past Drug Use History: None Reported - Past Family History Daughter(s) Family Medical History: Pulmonary Embolus Medications and Allergies Home Medications Medication Instructions Recorded Confirmed Type Bisoprolol/Hydrochlorothiazide 1 tab PO DAILY 09/08/17 07/21/23 History [Bisoprolol-Hctz 10-6.25 mg Tab] Levothyroxine Sodium 150 mcg PO DAILY 09/08/17 07/21/23 History Albuterol Sulfate [Albuterol 2 puff PO RT-QID PRN 07/21/23 07/21/23 History Sulfate Hfa] Budesonide-Formot 160-4.5 Mcg 2 puff INHALATION RT-BID 07/21/23 07/21/23 History [Symbicort 160-4.5 Mcg Inhaler] Cetirizine HCl [Zyrtec] 10 mg PO DAILY 07/21/23 07/21/23 History Ibuprofen [Motrin] 800 mg PO Q8H PRN 07/21/23 07/21/23 History Losartan [Cozaar] 50 mg PO DAILY 07/21/23 07/21/23 History Montelukast [Singulair] 10 mg PO HS 07/21/23 07/21/23 History Omeprazole [PriLOSEC] 20 mg PO HS 07/21/23 07/21/23 History metFORMIN HCL 500 mg PO HS 07/21/23 07/21/23 History Allergies Allergy/AdvReac Type Severity Reaction Status Date / Time No Known Allergies Allergy Verified 07/21/23 09:36 Physical Exam Vitals: Vital Signs Temp Pulse Pulse Resp BP BP Pulse Ox 07/22/23 08:57 90 18 07/22/23 08:49 90 18 95 07/22/23 08:05 97.9 F 90 18 169/74 92 L 07/22/23 06:06 98.0 F 82 18 134/52 92 L 07/22/23 04:05 86 16 140/60 94 L 07/22/23 03:30 84 18 143/74 93 L 07/22/23 02:50 88 18 142/72 94 L 07/22/23 00:00 86 18 180/79 94 L 07/21/23 19:36 98 07/21/23 19:27 96 07/21/23 18:49 75 20 151/91 94 L 07/21/23 16:57 102 H 07/21/23 16:46 100 93 L 01/29/24 12:27 94 L 07/21/23 12:26 85 20 142/79 90 L 07/21/23 11:34 88 07/21/23 11:23 87 Intake and Output 07/21/23 07/22/23 07/22/23 22:59 06:59 14:59 Intake Total 118 Balance 118 Intake: Oral 118 PHYSICAL EXAM: VITAL SIGNS: [As above] GENERAL: Alert and oriented x 3, sitting up in chair, no acute distress HEENT: Normocephalic, atraumatic conjunctivae normal. eyes normal. NECK: Supple, no JVD. No thyroid enlargement. CARDIOVASCULAR: S1, S2 regular..No murmur RESPIRATION: Respiratory effort mildly increased, equal air entry, bibasilar crackles ABDOMEN: Soft, nontender . No guarding. no masses palpable. No ascites, No hepatosplenomegaly.Bowel sounds heard. LEGS: No edema. no swelling NERVOUS SYSTEM: Cranial N 2-12 grossly normal. No focal deficits. Strength and sensation grossly intact.. Skin: Warm and dry, no rash Results CBC & Chem 7: 07/21/23 10:07 07/22/23 11:05 Labs: Abnormal Lab Results - Last 24 Hours (Table) 07/21/23 07/22/23 Range/Units 10:07 03:50 Sodium 129 L (137-145) mmol/L Glucose 208 H (74-99) mg/dL Calcium 8.1 L (8.4-10.2) mg/dL Total Bilirubin 2.1 H (0.2-1.3) mg/dL Albumin 3.4 L (3.5-5.0) g/dL Influenza Type A (PCR) Detected A (Not Detectd) Assessment and Plan Assessment: Bibasilar community-acquired pneumonia, failed outpatient treatment. Recent influenza A infection, did not receive Tamiflu outpatient- as labs sent out on Friday, results did not return until Friday/outside the window for treatment. Acute asthma exacerbation, possible, related to all the above, in a patient with history of moderate persistent asthma. Acute hypoxic respiratory failure secondary to all the above Hyponatremia Diabetes mellitus type 2, hyperglycemia, steroid-induced Hypothyroidism Hypertension Morbid obesity, BMI 37 Osteoarthritis Plan: Continue on current medication regimen, monitoring and symptomatic treatment. Aggressive pulmonary toileting with nebulized bronchodilators, steroids, Symbicort, empiric antibiotics. Levemir and NovoLog premeal insulin o rdered with parameters. Close monitoring of Accu-Cheks. PPI for GI prophylaxis. Close monitoring of electrolytes with repeat labs ordered for a.m. The impression and plan of care has been dictated as directed. : I performed a history and examination of this patient, discussed the same with the dictator. I agree with the dictator's note ,documented as a scribe. Any additional findings or plans will be noted.
[2023-07-22 11:45] LABS: African American GFR (CKD) >90 (>60 ml/min/1.73 sqM); Anion Gap 6 mmol/L; Blood Urea Nitrogen 18 mg/dL (9-20); Calcium 8.2 mg/dL (8.4-10.2); Carbon Dioxide 23 mmol/L (22-30); Chloride 101 mmol/L (98-107); Glucose 193 mg/dL (74-99); Non-African American GFR(CKD) >90 (>60 ml/min/1.73 sqM); Potassium 4.2 mmol/L (3.5-5.1); Sodium 130 mmol/L (137-145)
[2023-07-22 12:31] LABS: Glucose,Whole Blood 145 mg/dL (70-110)
[2023-07-22] MEDS ORDERED: DEXTROSE 50% SYRINGE 50 ML IVP PRN ×4 (13:05→17:22)
[2023-07-22] MEDS: INSULIN DETEMIR (LEVEMIR) 100 UNIT/ML SYR SQ SCH (13:30)
[2023-07-22 17:06] LABS: Glucose,Whole Blood 287 mg/dL (70-110)
[2023-07-22] MEDS: INSULIN ASPART (NovoLOG) 100 UNIT/ML VIAL SQ SCH ×3 (17:15→20:40)
[2023-07-22 20:22] LABS: Glucose,Whole Blood 188 mg/dL (70-110)
[2023-07-22] MEDS: PANTOPRAZOLE 40 MG TABLET PO SCH (20:40)
[2023-07-22] MEDS: MONTELUKAST 10 MG TAB PO SCH (20:40)
[2023-07-22] MEDS ORDERED: INSULIN DETEMIR (LEVEMIR) 100 UNIT/ML SYR SQ SCH (21:00)
[2023-07-22] MEDS ORDERED: metFORMIN 500 MG TAB PO SCH (21:00)
[2023-07-23 06:16] LABS: Glucose,Whole Blood 89 mg/dL (70-110)
[2023-07-23] MEDS: INSULIN ASPART (NovoLOG) 100 UNIT/ML VIAL SQ SCH ×6 (06:34→20:40)
[2023-07-23] MEDS: LEVOTHYROXINE 75 MCG TAB PO SCH (06:39)
[2023-07-23] MEDS: SODIUM CHLORIDE 0.9% 1,000 ML IV SCH ×2 (06:40→14:51)
[2023-07-23] MEDS ORDERED: INSULIN DETEMIR (LEVEMIR) 100 UNIT/ML SYR SQ SCH ×2 (07:00→13:07)
[2023-07-23] MEDS: LOSARTAN 50 MG TAB PO SCH (08:21)
[2023-07-23] MEDS: LORATADINE 10 MG TAB PO SCH (08:21)
[2023-07-23] MEDS: INSULIN DETEMIR (LEVEMIR) 100 UNIT/ML SYR SQ SCH (08:21)
[2023-07-23] MEDS: predniSONE 10 MG TAB PO SCH (08:21)
[2023-07-23] MEDS: BISOPROLOL-HCTZ 10-6.25 MG 1 EACH TAB PO SCH (08:21)
[2023-07-23 08:43] LABS: Basophils # (A) 0.01 X 10*3/uL (0.00-0.10); Basophils % (A) 0.1 %; Eosinophils # (A) 0.42 X 10*3/uL (0.04-0.35); Eosinophils % (A) 4.3 %; HCT 41.2 % (39.6-50.0); HGB 14.4 g/dL (13.0-17.0); Lymphocytes # (A) 1.11 X 10*3/uL (0.90-5.00); Lymphocytes % (A) 11.3 %; MCV 88.8 FL (80.0-97.0); Mean Platelet Volume 8.7 FL (9.5-12.2); Monocytes # (A) 0.94 X 10*3/uL (0.20-1.00); Monocytes % (A) 9.6 %; NRBC Per 100 WBC 0 X 10*3/uL (0.00-0.01); Neutrophils % (A) 74.1 %; Platelet Count 408 X 10*3/uL (140-440); RBC 4.64 X 10*6/uL (4.40-5.60); RDW 12.4 % (11.5-14.5); WBC 9.84 X 10*3/uL (4.50-10.00)
[2023-07-23] MEDS: IPRATROPIUM-ALBUTEROL 3 ML NEB INHALATION SCH ×4 (08:50→20:42)
[2023-07-23] MEDS: SYMBICORT 160-4.5 MCG INHALER INHALATION SCH ×2 (08:50→20:42)
[2023-07-23] MEDS: AZITHROMYCIN 500 MG in SODIUM CHLORIDE 0.9% 250 ML IVPB SCH (09:30)
[2023-07-23 11:46] LABS: Blood Urea Nitrogen 14.7 mg/dL (9.0-27.0); Calcium 8.6 mg/dL (8.7-10.3); Carbon Dioxide 24.9 mmol/L (21.6-31.8); Chloride 103 mmol/L (96-109); Glucose 86 mg/dL (70-110); Magnesium 2.2 mg/dL (1.5-2.4); Potassium 3.8 mmol/L (3.5-5.5); Sodium 139 mmol/L (135-145)
[2023-07-23 11:57] LABS: Glucose,Whole Blood 143 mg/dL (70-110)
--- NOTE | 2023-07-23 12:06 | P.PN ---
Subjective Progress Note Date: 07/23/23 I am seeing this patient in consultation today July 22, 2023 in the emergency room after he tested positive for influenza A outpatient 2 weeks ago, and has developed worsening shortness of breath. Patient is a 63-year-old white male with past medical history significant for moderate persistent asthma, hypothyroidism, diabetes mellitus, hypertension. His primary care provider is Dr. Alcazar. He does follow with Dr. Armstrong in the pulmonary office for management of his cough variant asthma. Is maintained on a combination of Symbicort inhaler and as needed Ventolin HFA rescue inhaler. Patient states that approximately 2 weeks ago he started having URI-like symptoms including a nonproductive cough, nasal drainage, fever. He also had some self-limiting diarrhea. He went to Dr. Alcazar office, and tested positive for influenza A. He is unsure if he was treated with Tamiflu. Since then, the patient has had worsening shortness of breath. He did have a chest x-ray done July 14, which showed a possible left lower lobe infiltrate. It is unclear if the patient was treated outpatient for pneumonia, as the patient is unsure what medications he was placed on. He denies any chest pain, hemoptysis, or sputum production. He did present to the emergency room yesterday morning for worsening shortness of breath. He is currently sitting up in the stretcher, on 3 L/min nasal cannula, in no acute distress. Chest x-ray demonstrates bibasilar infiltrates, concerning for superimposed bacterial pneumonia. CBC on arrival is unremarkable. No leukocytosis. BMP has a sodium of 129, potassium 4.4, chloride 99, serum bicarb 22, BUN 13, creatinine 0.77, glucose 208. Normal saline infusing at 75 mL/h. Lactic acid level 1.4. Troponin less than 0.012. NT proBNP not elevated. Patient has been started on accommodation of azithromycin and Rocephin. He is currently afebrile. Hemodynamically stable. The patient is seen today July 23, 2023 in follow-up on the regular medical floor. He is currently sitting up in bed. Awake and alert in no acute distress. Feeling a bit better today compared to yesterday. He is maintaining O2 saturations in the 90s on 2 L/min per nasal cannula. He has normal saline at 75 MLS per hour. White count 9.8. Hemoglobin 14.4. Platelets 408. Sodium 1 39. Potassium 3.8. Bicarb 25. BUN 15. Creatinine 1.0. Glucose 86. He is continued on DuoNeb ventilations, Symbicort, prednisone. Antibiotics in the form of ceftriaxone. Completed azithromycin. Procalcitonin pending. Objective - Vital Signs Vital signs: Vital Signs Temp 98.1 F 07/23/23 08:00 Pulse 80 07/23/23 09:01 Resp 19 07/23/23 08:00 BP 154/83 07/23/23 08:00 Pulse Ox 93 L 07/23/23 08:00 FiO2 Intake & Output 07/22/23 07/23/23 07/23/23 18:59 06:59 18:59 Intake Total 708 Balance 708 Intake: Oral 708 Other: Voiding Method Toilet # Voids 2 2 - Exam GENERAL EXAM: Alert, pleasant 63-year-old male patient, sitting up in bed, on 2 L nasal cannula, comfortable in no apparent distress. HEAD: Normocephalic. EYES: Normal reaction of pupils, equal size. NOSE: Clear with pink turbinates. THROAT: No erythema or exudates. NECK: No masses, no JVD. CHEST: No chest wall deformity. LUNGS: Equal air entry with few scattered rhonchi. CVS: S1 and S2 normal with no audible murmur, regular rhythm. ABDOMEN: No hepatosplenomegaly, normal bowel sounds, no guarding or rigidity. SPINE: No scoliosis or deformity SKIN: No rashes CENTRAL NERVOUS SYSTEM: No focal deficits, tone is normal in all 4 extremities. EXTREMITIES: There is no peripheral edema. No clubbing, no cyanosis. Peripheral pulses are intact. - Labs CBC & Chem 7: 07/23/23 06:20 07/22/23 11:05 Labs: Abnormal Lab Results - Last 24 Hours (Table) 07/22/23 07/22/23 07/22/23 Range/Units 11:05 12:29 17:04 MPV (9.5-12.2) FL Immature Gran # (0.00-0.04) X 10*3/uL Eosinophils # (0.04-0.35) X 10*3/uL Sodium 130 L (137-145) mmol/L Glucose 193 H (74-99) mg/dL POC Glucose (mg/dL) 145 H 287 H (70-110) mg/dL Hemoglobin A1c (<=6.0) % Calcium 8.2 L (8.4-10.2) mg/dL 07/22/23 07/23/23 07/23/23 Range/Units 20:20 06:20 06:20 MPV 8.7 L (9.5-12.2) FL Immature Gran # 0.06 H (0.00-0.04) X 10*3/uL Eosinophils # 0.42 H (0.04-0.35) X 10*3/uL Sodium (137-145) mmol/L Glucose (74-99) mg/dL POC Glucose (mg/dL) 188 H (70-110) mg/dL Hemoglobin A1c 6.9 H (<=6.0) % Calcium (8.4-10.2) mg/dL Microbiology - Last 24 Hours (Table) 07/21/23 12:05 Blood Culture - Preliminary Blood 07/21/23 12:23 Blood Culture - Preliminary Blood Assessment and Plan Assessment: Acute hypoxemic respiratory failure, currently on 3 L/min nasal cannula, secondary to suspected bibasilar community-acquired pneumonia. Chest x-ray on arrival demonstrates bibasilar infiltrates, worsening from recent chest x-ray done on July 14. Recent influenza A infection, treated outpatient Moderate persistent asthma, not in exacerbation, normal maintained on combination of Symbicort inhaler twice daily and as needed Ventolin HFA Diabetes mellitus type 2 Hypothyroidism Hypertension Obesity, with a BMI of 37.6 kg/m Plan: The patient was seen and evaluated Labs and medications reviewed Procalcitonin pending Continue ceftriaxone for now Completed azithromycin Continue bronchodilators, steroids Follow-up chest x-ray in a.m. Probable discharge in a.m. We will continue to follow I have personally seen and examined the patient, performed the documentation and the assessment and plan as written. Number of minutes spent on the visit: 10.
--- NOTE | 2023-07-23 15:06 | P.PN ---
Subjective Progress Note Date: 07/23/23 07/22/23 This is a 63-year-old gentleman with past medical history significant for moderate persistent asthma, diabetes mellitus, hypothyroidism, hypertension, recent pneumonia and influenza A. Reports 2 weeks ago he was treated for his pneumonia at primary's office, Dr. Alcazar. PCP states patient received a Z-Gilbert, 2 g Rocephin IM and Medrol Dosepak. Swabbed for influenza A, sent out on a Friday, unfortunately results were not received until the following Friday and patient did not receive Tamiflu. Patient reports compliance with medication regime but dyspnea worsens, no improvement with low pulse ox read in the 80s and proceeded to the ER. On admission, 88% on room air. Currently maintaining O2 sats in the low 90s on 3 L nasal cannula. Reports nonproductive cough .denies any chest pain, palpitations. Denies any lightheadedness, dizziness or focal deficits. Denies nausea, had some diarrhea which has resolved. denies abdominal pain. Chest x-ray reported slightly increased bibasilar patchy airspace opacities concerning for pneumonia. Repeat chest x-ray reported similar bibasilar patchy airspace opacities concerning for pneumonia. Afebrile. Lactic acid 1.4. hematology unremarkable. Sodium 130, potassium 4.2, bicarb 23, BUN 18, creatinine 0.76, magnesium 2.2. proBNP within normal limits. blood sugars controlled. Influenza type a detected. Negative for influenza type B, RSV, COVID. Maintained on IV Rocephin and azithromycin. 07/23/2023 maintained on nebulized bronchodilators, oral steroids, Symbicort, ceftriaxone and IV fluid hydration. Zithromax completed. Breathing improved, maintaining O2 sats in the 90s on 2 L nasal cannula. Levemir and NovoLog sliding scale initiated yesterday with blood sugars controlled. Hemoglobin A1c 6.9.. Objective - Vital Signs Vital signs: Vital Signs Temp 98.1 F 07/23/23 08:00 Pulse 72 07/23/23 12:02 Resp 19 07/23/23 08:00 BP 154/83 07/23/23 08:00 Pulse Ox 93 L 07/23/23 08:00 FiO2 Intake & Output 07/22/23 07/23/23 07/23/23 18:59 06:59 18:59 Intake Total 708 Balance 708 Intake: Oral 708 Other: Voiding Method Toilet # Voids 2 2 - Exam PHYSICAL EXAM: VITAL SIGNS: [As above] GENERAL: Alert and oriented x 3, sitting up in bed, no acute distress HEENT: Normocephalic, atraumatic conjunctivae normal. eyes normal. NECK: Supple, no JVD. No thyroid enlargement. CARDIOVASCULAR: S1, S2 regular..No murmur RESPIRATION: Unlabored, equal air entry, occasional scattered rhonchi, minimal fine basilar crackles ABDOMEN: Soft, nontender . No guarding. Positive bowel sounds LEGS: No edema. no swelling. No clubbing, no cyanosis. NERVOUS SYSTEM: Cranial N 2-12 grossly normal. No focal deficits. Strength and sensation grossly intact.. Skin: Warm and dry, no rash - Labs CBC & Chem 7: 07/23/23 06:20 07/23/23 06:20 Labs: Abnormal Lab Results - Last 24 Hours (Table) 07/22/23 07/22/23 07/23/23 Range/Units 17:04 20:20 06:20 MPV (9.5-12.2) FL Immature Gran # (0.00-0.04) X 10*3/uL Eosinophils # (0.04-0.35) X 10*3/uL POC Glucose (mg/dL) 287 H 188 H (70-110) mg/dL Hemoglobin A1c 6.9 H (<=6.0) % Calcium (8.7-10.3) mg/dL 07/23/23 07/23/23 07/23/23 Range/Units 06:20 06:20 11:55 MPV 8.7 L (9.5-12.2) FL Immature Gran # 0.06 H (0.00-0.04) X 10*3/uL Eosinophils # 0.42 H (0.04-0.35) X 10*3/uL POC Glucose (mg/dL) 143 H (70-110) mg/dL Hemoglobin A1c (<=6.0) % Calcium 8.6 L (8.7-10.3) mg/dL Microbiology - Last 24 Hours (Table) 07/21/23 12:05 Blood Culture - Preliminary Blood 07/21/23 12:23 Blood Culture - Preliminary Blood Assessment and Plan Assessment: Bibasilar community-acquired pneumonia, failed outpatient treatment. Recent influenza A infection, did not receive Tamiflu outpatient- as labs sent out on Friday, results did not return until Friday/outside the window for treatment. Moderate persistent asthma with no acute exacerbation as per pulmonary. Acute hypoxic respiratory failure secondary to all the above Hyponatremia Diabetes mellitus type 2, hyperglycemia, steroid-induced, hemoglobin A1c 6.9 Hypothyroidism Hypertension Morbid obesity, BMI 37 Osteoarthritis Plan: Continue on current medication regimen, monitoring and symptomatic treatment. Calcitonin pending .maintain aggressive pulmonary toileting with nebulized bronchodilators, oral steroids, Symbicort, ceftriaxone. Premeal insulin discontinued, Levemir insulin decreased, close monitoring of Accu-Cheks. Increase ambulation as tolerated. Discharge planning in progress for tomorrow pending final DC recommendations and clearance per pulmonary. The impression and plan of care has been dictated as directed. : I performed a history and examination of this patient, discussed the same with the dictator. I agree with the dictator's note ,documented as a scribe. Any additional findings or plans will be noted.
[2023-07-23 17:05] LABS: Glucose,Whole Blood 191 mg/dL (70-110)
[2023-07-23] MEDS: PANTOPRAZOLE 40 MG TABLET PO SCH (19:55)
[2023-07-23] MEDS: MONTELUKAST 10 MG TAB PO SCH (19:55)
[2023-07-23 20:18] LABS: Glucose,Whole Blood 207 mg/dL (70-110)
[2023-07-24 06:21] LABS: Glucose,Whole Blood 78 mg/dL (70-110)
[2023-07-24] MEDS: LEVOTHYROXINE 75 MCG TAB PO SCH (06:27)
[2023-07-24] MEDS: SODIUM CHLORIDE 0.9% 1,000 ML IV SCH (06:28)
[2023-07-24] MEDS: INSULIN ASPART (NovoLOG) 100 UNIT/ML VIAL SQ SCH ×2 (07:04→12:31)
[2023-07-24 07:44] VITALS: BP 163/83; RESP 20; TEMP 97.7
[2023-07-24] MEDS: BISOPROLOL-HCTZ 10-6.25 MG 1 EACH TAB PO SCH (07:59)
[2023-07-24] MEDS: LORATADINE 10 MG TAB PO SCH (07:59)
[2023-07-24] MEDS: LOSARTAN 50 MG TAB PO SCH (07:59)
[2023-07-24] MEDS: SYMBICORT 160-4.5 MCG INHALER INHALATION SCH (08:09)
[2023-07-24] MEDS: IPRATROPIUM-ALBUTEROL 3 ML NEB INHALATION SCH ×2 (08:09→11:39)
--- NOTE | 2023-07-24 08:46 | XR ---
EXAMINATION TYPE: XR chest 1V portable DATE OF EXAM: 07/24/2023 7:38 AM CLINICAL INDICATION:Male, 63 years old with history of Pneumonia; [facility] COMPARISON: Chest radiographs from 07/22/2023 TECHNIQUE: XR chest 1V portable Frontal view of the chest. FINDINGS: Lungs/Pleura: Multifocal airspace opacities. No evidence of pneumothorax or pleural effusion. Pulmonary vascularity: Unremarkable. Heart/mediastinum: Cardiomediastinal silhouette is unremarkable. Musculoskeletal: No acute osseous pathology. Other findings: None Lines/Tubes: IMPRESSION: Low lung volumes with similar multifocal airspace opacities concerning for pneumonia.
[2023-07-24] MEDS ORDERED: methylPREDNISolone 4 MG TAB TAPER PO SCH (09:00)
[2023-07-24] MEDS ORDERED: CEFDINIR 300 MG CAP PO SCH (09:00)
[2023-07-24 11:52] VITALS: PULSE 72
--- NOTE | 2023-07-24 12:30 | P.PN ---
Subjective Progress Note Date: 07/24/23 I am seeing this patient in consultation today July 22, 2023 in the emergency room after he tested positive for influenza A outpatient 2 weeks ago, and has developed worsening shortness of breath. Patient is a 63-year-old white male with past medical history significant for moderate persistent asthma, hypothyroidism, diabetes mellitus, hypertension. His primary care provider is Dr. Alcazar. He does follow with Dr. Armstrong in the pulmonary office for management of his cough variant asthma. Is maintained on a combination of Symbicort inhaler and as needed Ventolin HFA rescue inhaler. Patient states that approximately 2 weeks ago he started having URI-like symptoms including a nonproductive cough, nasal drainage, fever. He also had some self-limiting diarrhea. He went to Dr. Alcazar office, and tested positive for influenza A. He is unsure if he was treated with Tamiflu. Since then, the patient has had worsening shortness of breath. He did have a chest x-ray done July 14, which showed a possible left lower lobe infiltrate. It is unclear if the patient was treated outpatient for pneumonia, as the patient is unsure what medications he was placed on. He denies any chest pain, hemoptysis, or sputum production. He did present to the emergency room yesterday morning for worsening shortness of breath. He is currently sitting up in the stretcher, on 3 L/min nasal cannula, in no acute distress. Chest x-ray demonstrates bibasilar infiltrates, concerning for superimposed bacterial pneumonia. CBC on arrival is unremarkable. No leukocytosis. BMP has a sodium of 129, potassium 4.4, chloride 99, serum bicarb 22, BUN 13, creatinine 0.77, glucose 208. Normal saline infusing at 75 mL/h. Lactic acid level 1.4. Troponin less than 0.012. NT proBNP not elevated. Patient has been started on accommodation of azithromycin and Rocephin. He is currently afebrile. Hemodynamically stable. The patient is seen today July 23, 2023 in follow-up on the regular medical floor. He is currently sitting up in bed. Awake and alert in no acute distress. Feeling a bit better today compared to yesterday. He is maintaining O2 saturations in the 90s on 2 L/min per nasal cannula. He has normal saline at 75 MLS per hour. White count 9.8. Hemoglobin 14.4. Platelets 408. Sodium 1 39. Potassium 3.8. Bicarb 25. BUN 15. Creatinine 1.0. Glucose 86. He is continued on DuoNeb ventilations, Symbicort, prednisone. Antibiotics in the form of ceftriaxone. Completed azithromycin. Procalcitonin pending. The patient is seen today July 24, 2023 in follow-up on the regular medical floor. He is awake and alert in no acute distress. Sitting up in bed. No worsening shortness of breath, cough or congestion. Feeling better today compared to yesterday. Procalcitonin was negative at 0.04. He has normal saline at 75 MLS per hour. He has been on ceftriaxone. Oxygen at 1 L/min per nasal cannula. Glucose 78. Objective - Vital Signs Vital signs: Vital Signs Temp 97.7 F 07/24/23 07:42 Pulse 72 07/24/23 11:31 Resp 20 07/24/23 08:09 BP 163/83 07/24/23 07:42 Pulse Ox 93 L 07/24/23 11:31 FiO2 Intake & Output 07/23/23 07/24/23 07/24/23 18:59 06:59 18:59 Intake Total 118 118 Balance 118 118 Intake: Oral 118 118 Other: Voiding Method Toilet Toilet # Voids 1 - Exam GENERAL EXAM: Alert, 63-year-old male patient, on 1 L nasal cannula, comfortable in no apparent distress. HEAD: Normocephalic. EYES: Normal reaction of pupils, equal size. NOSE: Clear with pink turbinates. THROAT: No erythema or exudates. NECK: No masses, no JVD. CHEST: No chest wall deformity. LUNGS: Equal air entry with few scattered rhonchi. CVS: S1 and S2 normal with no audible murmur, regular rhythm. ABDOMEN: No hepatosplenomegaly, normal bowel sounds, no guarding or rigidity. SPINE: No scoliosis or deformity SKIN: No rashes CENTRAL NERVOUS SYSTEM: No focal deficits, tone is normal in all 4 extremities. EXTREMITIES: There is no peripheral edema. No clubbing, no cyanosis. Peripheral pulses are intact. - Labs CBC & Chem 7: 07/23/23 06:20 07/23/23 06:20 Labs: Abnormal Lab Results - Last 24 Hours (Table) 07/23/23 07/23/23 Range/Units 17:04 20:16 POC Glucose (mg/dL) 191 H 207 H (70-110) mg/dL Microbiology - Last 24 Hours (Table) 07/21/23 12:05 Blood Culture - Preliminary Blood 07/21/23 12:23 Blood Culture - Preliminary Blood Assessment and Plan Assessment: Acute hypoxemic respiratory failure, currently on 3 L/min nasal cannula, secondary to suspected bibasilar community-acquired pneumonia. Chest x-ray on arrival demonstrates bibasilar infiltrates, worsening from recent chest x-ray done on July 14. Recent influenza A infection, treated outpatient Moderate persistent asthma, not in exacerbation, normal maintained on combination of Symbicort inhaler twice daily and as needed Ventolin HFA Diabetes mellitus type 2 Hypothyroidism Hypertension Obesity, with a BMI of 37.6 kg/m Plan: The patient was seen and evaluated Chest x-ray, labs and medications reviewed Cleared for discharge from the pulmonary standpoint Evaluate for possible home oxygen Discontinue ceftriaxone Omnicef 300 mg twice daily x 5 days Medrol Dosepak Follow-up in our office in 1 week I have personally seen and examined the patient, performed the documentation and the assessment and plan as written. Number of minutes spent on the visit: 10.
--- NOTE | 2023-07-24 13:10 | P.DS ---
Providers Date of admission: 07/21/23 11:44 Expected date of discharge: 07/24/23 Attending physician: Kapil Alcazar Consults: 07/21/23 11:52 Consult Physician Routine Consulting Provider: Ron Armstrong Consult Reason/Comments: asthma, pneumonia Do you want consulting provider notified?: Yes Primary care physician: Kapil Alcazar Hospital Course: Final Diagnoses: Bibasilar community-acquired pneumonia, failed outpatient treatment. Recent influenza A infection, did not receive Tamiflu outpatient- as labs sent out on Friday, results did not return until Friday/outside the window for treatment. Moderate persistent asthma with no acute exacerbation as per pulmonary. Acute hypoxic respiratory failure secondary to all the above Hyponatremia Diabetes mellitus type 2, hyperglycemia, steroid-induced, hemoglobin A1c 6.9 Hypothyroidism Hypertension Morbid obesity, BMI 37 Osteoarthritis Hospital course: This is a 63-year-old gentleman with past medical history significant for mod erate persistent asthma, diabetes mellitus, hypothyroidism, hypertension, recent pneumonia and influenza A. Reports 2 weeks ago he was treated for his pneumonia at primary's office, Dr. Alcazar. PCP states patient received a Z-Gilbert, 2 g Rocephin IM and Medrol Dosepak. Swabbed for influenza A, sent out on a Friday, unfortunately results were not received until the following Friday and patient did not receive Tamiflu. Patient reports compliance with medication regime but dyspnea worsens, no improvement with low pulse ox read in the 80s and proceeded to the ER. On admission, 88% on room air. Currently maintaining O2 sats in the low 90s on 3 L nasal cannula. Reports nonproductive cough .denies any chest pain, palpitations. Denies any lightheadedness, dizziness or focal deficits. Denies nausea, had some diarrhea which has resolved. denies abdominal pain. Chest x-ray reported slightly increased bibasilar patchy airspace opacities concerning for pneumonia. Repeat chest x-ray reported similar bibasilar patchy airspace opacities concerning for pneumonia. Afebrile. Lactic acid 1.4. hematology unremarkable. Sodium 130, potassium 4.2, bicarb 23, BUN 18, creatinine 0.76, magnesium 2.2. proBNP within normal limits. blood sugars controlled. Influenza type a detected. Negative for influenza type B, RSV, COVID. Maintained on IV Rocephin and azithromycin. 07/23/2023 maintained on nebulized bronchodilators, oral steroids, Symbicort, ceftriaxone and IV fluid hydration. Zithromax completed. Breathing improved, maintaining O2 sats in the 90s on 2 L nasal cannula. Levemir and NovoLog sliding scale initiated yesterday with blood sugars controlled. Hemoglobin A1c 6.9.. Significant clinical improvement. Weaned off of oxygen this morning currently maintaining O2 sats 93% on room air after ambulation. Afebrile. Denies chest pain, palpitations or pressure. Denies shortness of breath. Denies lightheadedness dizziness or focal deficits. Cleared by pulmonary for discharg e. The impression and plan of care has been dictated as directed. : I performed a history and examination of this patient, discussed the same with the dictator. I agree with the dictator's note ,documented as a scribe. Any additional findings or plans will be noted. Patient Condition at Discharge: Stable Plan - Discharge Summary Discharge Rx Participant: Yes New Discharge Prescriptions: New Cefdinir [Omnicef] 300 mg PO BID 3 Days #6 cap methylPREDNISolone Dose Pack [Medrol Dose Pack] 4 mg PO DIRECTED #1 packet Continue Levothyroxine Sodium 150 mcg PO DAILY Bisoprolol/Hydrochlorothiazide [Bisoprolol-Hctz 10-6.25 mg Tab] 1 tab PO DAILY Omeprazole [PriLOSEC] 20 mg PO HS Ibuprofen [Motrin] 800 mg PO Q8H PRN PRN Reason: Pain Losartan [Cozaar] 50 mg PO DAILY Budesonide-Formot 160-4.5 Mcg [Symbicort 160-4.5 Mcg Inhaler] 2 puff INHALATI ON RT-BID Cetirizine HCl [Zyrtec] 10 mg PO DAILY metFORMIN HCL 500 mg PO HS Albuterol Sulfate [Albuterol Sulfate Hfa] 2 puff PO RT-QID PRN PRN Reason: Shortness Of Breath Montelukast [Singulair] 10 mg PO HS Discharge Medication List Bisoprolol/Hydrochlorothiazide [Bisoprolol-Hctz 10-6.25 mg Tab] 1 tab PO DAILY 09/08/17 [History] Levothyroxine Sodium 150 mcg PO DAILY 09/08/17 [History] Albuterol Sulfate [Albuterol Sulfate Hfa] 2 puff PO RT-QID PRN 07/21/23 [History] Budesonide-Formot 160-4.5 Mcg [Symbicort 160-4.5 Mcg Inhaler] 2 puff INHALATION RT-BID 07/21/23 [History] Cetirizine HCl [Zyrtec] 10 mg PO DAILY 07/21/23 [History] Ibuprofen [Motrin] 800 mg PO Q8H PRN 07/21/23 [History] Losartan [Cozaar] 50 mg PO DAILY 07/21/23 [History] Montelukast [Singulair] 10 mg PO HS 07/21/23 [History] Omeprazole [PriLOSEC] 20 mg PO HS 07/21/23 [History] metFORMIN HCL 500 mg PO HS 07/21/23 [History] Cefdinir [Omnicef] 300 mg PO BID 3 Days #6 cap 07/24/23 [Rx] methylPREDNISolone Dose Pack [Medrol Dose Pack] 4 mg PO DIRECTED #1 packet 07/24/23 [Rx] Follow up Appointment(s)/Referral(s): Kapil Alcazar DO [Primary Care Provider] - 3 Days Patient Instructions/Handouts: COPD (Chronic Obstructive Pulmonary Disease) (DC) Activity/Diet/Wound Care/Special Instructions: FOLLOW UP DIRECTED, SOONER FOR WORSENING SYMPTOMS, PROBLEMS, OR CONCERNS.
== END 2023-07-24 12:21 | disposition home or self-care (01) | DRG 193 ==
LOC: EC 09:28 → 4SSUR 11:44 → 6NMEDSUR 07-22 06:27
PROVIDERS: ADMIT Family Medicine; ATTEND Family Medicine
DX: J10.00 Influenza due to other identified influenza virus with unspecified type of pneumonia (principal); J96.01 Acute respiratory failure with hypoxia; E87.1 Hypo-osmolality and hyponatremia; J45.41 Moderate persistent asthma with (acute) exacerbation; E11.65 Type 2 diabetes mellitus with hyperglycemia; E66.01 Morbid (severe) obesity due to excess calories; I10 Essential (primary) hypertension; E03.9 Hypothyroidism, unspecified; Z68.37 Body mass index [BMI] 37.0-37.9, adult; Z28.310 Unvaccinated for COVID-19; T38.0X5A Adverse effect of glucocorticoids and synthetic analogues, initial encounter; J15.9 Unspecified bacterial pneumonia; M19.90 Unspecified osteoarthritis, unspecified site; Z79.52 Long term (current) use of systemic steroids; Z79.890 Hormone replacement therapy; Z79.84 Long term (current) use of oral hypoglycemic drugs; Z79.51 Long term (current) use of inhaled steroids; Z87.01 Personal history of pneumonia (recurrent); Z79.899 Other long term (current) drug therapy
CPT/HCPCS: 36415; 71045; 71046; 80048; 80053; 83036; 83605; 83735; 83880; 84145; 84484; 85025; 85610; 85730; 87040; 87449; 87636; 93005; 94640; 94760; 96361; 96365; 96367; 96375; 99285

== ENCOUNTER → 2023-08-01 | Outpatient (CLI) | payer MEDICARE ==
--- NOTE | 2023-08-01 10:27 | XR ---
EXAMINATION TYPE: XR chest 2V DATE OF EXAM: 08/01/2023 10:14 AM CLINICAL INDICATION:Male, 63 years old with history of J18.9 PNEUMONIA; [facility] COMPARISON: 07/24/2023. TECHNIQUE: XR chest 2V Frontal and lateral views of the chest. FINDINGS: Lungs/Pleura: Similar airspace opacities predominantly in the lung bases. No evidence of pneumothorax or pleural effusion. Pulmonary vascularity: Unremarkable. Heart/mediastinum: Cardiomediastinal silhouette is unremarkable. Musculoskeletal: No acute osseous pathology. IMPRESSION: Persistent opacities in lung bases. Not significantly changed from immediate prior's.
== END | disposition home or self-care (01) ==
LOC: RADXRMAIN 10:01
PROVIDERS: ATTEND Family Medicine
DX: J18.9 Pneumonia, unspecified organism (principal); R91.8 Other nonspecific abnormal finding of lung field
CPT/HCPCS: 71046

== ENCOUNTER → 2023-08-13 | Outpatient (CLI) | payer MEDICARE ==
--- NOTE | 2023-08-13 14:04 | XR ---
EXAMINATION TYPE: XR chest 2V DATE OF EXAM: 08/13/2023 COMPARISON: 08/01/2023. HISTORY: Follow-up for pneumonia. TECHNIQUE: Frontal and lateral views of the chest are obtained. FINDINGS: There is some scattered bronchial wall thickening seen throughout the lungs bilaterally wh ich is likely related to inflammatory airway changes and/or bronchitis. There is no focal area of con solidation otherwise seen. The cardiac silhouette and pulmonary vessels otherwise appear within evelin l limits. IMPRESSION: No significant change.
== END | disposition home or self-care (01) ==
LOC: RADXRMAIN 13:34
PROVIDERS: ATTEND Family Medicine
DX: J18.9 Pneumonia, unspecified organism (principal)
CPT/HCPCS: 71046

== ENCOUNTER → 2023-08-19 | Outpatient (CLI) | payer MEDICARE ==
--- NOTE | 2023-08-19 17:06 | CT ---
EXAMINATION TYPE: CT chest wo con DATE OF EXAM: 08/19/2023 COMPARISON: 02/06/2019 HISTORY: pneumonia CT DLP: 1389.2 mGycm, Automated exposure control for dose reduction was used. CONTRAST: None TECHNIQUE: Axial images were obtained at 1 mm thick sections at 10 mm intervals. This will limit po rtions of the examination which may not be visualized within the [id number]. Images were obtained in the prone and supine views. FINDINGS: Portion of the thyroid visualized is normal. There are mild scattered peripheral increased linear markings present from comparison. This appears greater in the lower lung yanez. Some mild bronchiectasis may be developing. No significant change is evident in the prone versus supine No enlarged mediastinal or hilar adenopathy is evident. The ascending aorta diameter at the level o f the main pulmonary artery is 3.9 cm. The main pulmonary artery diameter at the bifurcation is 2.[address] sections are obtained through the upper abdomen. Abdomen is essentially unremarkable. IMPRESSION: 1. Interval developments of bilateral upper and lower lobe increased linear lung markings. This is gr eater in the lower lung yanez. Some bronchiectasis is developing. Consider pulmonary fibrosis among other etiologies. Findings were not present in 2019.
== END | disposition home or self-care (01) ==
LOC: RADCTMAIN 10:29
PROVIDERS: ATTEND Internal Medicine Critical Care Medicine
DX: J47.9 Bronchiectasis, uncomplicated (principal); J84.9 Interstitial pulmonary disease, unspecified
CPT/HCPCS: 71250

== ENCOUNTER → 2023-09-17 | Outpatient (CLI) | payer MEDICARE ==
[2023-09-17 18:18] LABS: Partial Thromboplastin Time 25.3 sec (22.0-30.0); Prothrombin Time 10.5 sec (10.0-12.5)
[2023-09-18 02:33] LABS: Basophils # (A) 0.07 X 10*3/uL (0.00-0.10); Eosinophils % (A) 8.9 %; HCT 47.3 % (39.6-50.0); HGB 15.7 g/dL (13.0-17.0); Lymphocytes # (A) 2.07 X 10*3/uL (0.90-5.00); Lymphocytes % (A) 30.6 %; MCH 31.8 pg (27.0-32.0); MCHC 33.2 g/dL (32.0-37.0); MCV 95.7 FL (80.0-97.0); Monocytes # (A) 0.79 X 10*3/uL (0.20-1.00); Monocytes % (A) 11.7 %; NRBC Per 100 WBC 0 X 10*3/uL (0.00-0.01); Neutrophils # (A) 3.21 X 10*3/uL (1.80-7.70); Neutrophils % (A) 47.4 %; Platelet Count 256 X 10*3/uL (140-440); RBC 4.94 X 10*6/uL (4.40-5.60); RDW 13.2 % (11.5-14.5); WBC 6.77 X 10*3/uL (4.50-10.00)
[2023-09-18 02:53] LABS: Blood Urea Nitrogen 8.3 mg/dL (9.0-27.0); Carbon Dioxide 28.7 mmol/L (21.6-31.8); Chloride 96 mmol/L (96-109); Glucose 90 mg/dL (70-110); Potassium 4.3 mmol/L (3.5-5.5); Sodium 135 mmol/L (135-145)
[2023-09-18 04:07] LABS: Appearance,Urine Clear (Clear); Bilirubin,Urine Small (Negative); Blood,Urine Negative (Negative); Color,Urine Dark Yellow (Yellow); Ketones,Urine Trace (Negative); Nitrite,Urine Negative (Negative); PH, Urine 6.5; Specific Gravity,Urine 1.024 (1.001-1.030)
[2023-09-18 04:21] LABS: Bacteria,Urine None Seen (None Seen)
== END | disposition home or self-care (01) ==
LOC: LABPAT 15:37
PROVIDERS: ATTEND Thoracic Surgery (Cardiothoracic Vascular Surgery)
DX: Z01.812 Encounter for preprocedural laboratory examination (principal); R58 Hemorrhage, not elsewhere classified; R53.83 Other fatigue; Z79.899 Other long term (current) drug therapy
CPT/HCPCS: 80051; 81001; 82565; 82947; 84520; 85025; 85610; 85730; 86850; 86870; 86880; 86900; 86901; 87086

== ENCOUNTER 2023-09-24 10:33 | Inpatient (IN) | payer MEDICARE ==
[2023-09-18 14:15] VITALS: BMI 35.0
[~2023-09-24 10:33] MED LIST changes: -ACETAMINOPHEN TAB 500 MG TAB PO ONE; +LIDOCAINE 1% (10MG/ML) FOR IV START INTRADERMA PRN; -MELOXICAM 7.5 MG TAB PO ONE; -MORPHINE SULFATE 4 MG/ML SYRINGE IV PRN; -ROPIVACAINE 246.25 MG, EPINEPHrine 0.5 MG, KETOROLAC 30 MG, cloNIDine HCL/PF 80 MCG, WA... MISCELLANE ONE; -TRANEXAMIC ACID 1,000 MG in SODIUM CHLORIDE 0.9% 50 ML IVPB ONE; -ceFAZolin IN SWFI 2 GM/20 ML SYRINGE IVP ONE
[2023-09-24] MEDS: LACTATED RINGERS 1,000 ML IV SCH (10:51)
[2023-09-24 11:28] LABS: Glucose,Whole Blood 109 mg/dL (70-110)
[2023-09-24] MEDS: ONDANSETRON 4 MG/2 ML VIAL IVP ONE (11:36)
[2023-09-24] MEDS: MIDAZOLAM 2 MG/2 ML VIAL IVP ONE (11:50)
--- NOTE | 2023-09-24 12:08 | P.ANPRN ---
Procedure Note - Anesthesia - Invasive Line Right Arterial Line Time Out Performed: Yes Date of Procedure: 09/24/23 Time of Procedure: 11:55 Location of Patient: PreOp Preparation: Sterile Prep Arterial Line Location: Radial Ultrasound Used: Yes Purpose - Visualization and Identification of Vasculature: Yes Needle Guage: 22 G Image Stored and Saved: Yes Narrative: Invasive line placement per sterile protocol utilized.
[2023-09-24] MEDS ORDERED: PROPOFOL 10 MG/ML 20 ML VIAL IV ONE (12:37)
[2023-09-24] MEDS ORDERED: NEOSTIGMINE 1 MG/ML 10 ML VIAL ONE (12:37)
[2023-09-24] MEDS ORDERED: HYDROmorphone (PF) 1 MG/ML ONE (12:37)
[2023-09-24] MEDS ORDERED: GLYCOPYRROLATE 0.2 MG/ML 2 ML VIAL ONE (12:37)
[2023-09-24] MEDS ORDERED: SUCCINYLCHOLINE CHLORIDE 200 MG/10 ML VIAL IV ONE (12:37)
[2023-09-24] MEDS ORDERED: ePHEDrine 50 MG/ML 1 ML VIAL ONE (12:37)
[2023-09-24] MEDS ORDERED: ROCURONIUM 10 MG/ML (5 ML VIAL) IV ONE (12:37)
[2023-09-24] MEDS ORDERED: fentaNYL (PF) 50 MCG/ML 2 ML AMP ONE (12:37)
[2023-09-24] MEDS ORDERED: LIDOCAINE 1% INJ 10MG/ML (20 ML MDV) ONE (12:37)
[2023-09-24] MEDS: LACTATED RINGERS 1,000 ML IV ONE (12:45)
[2023-09-24] MEDS: BUPIVACAINE (PF) 0.25% 30 ML VIAL SQ ONE (13:37)
[2023-09-24] MEDS: HYDROmorphone 0.5 MG/0.5 ML SYRINGE IVP PRN (14:33)
--- NOTE | 2023-09-24 14:38 | XR ---
EXAMINATION TYPE: XR chest 1V portable DATE OF EXAM: 09/24/2023 2:26 PM CLINICAL INDICATION:Male, 63 years old with history of post lung biopsy; COMPARISON: Chest radiographs from 08/13/2023 TECHNIQUE: XR chest 1V portable Frontal view of the chest. FINDINGS: Lungs/Pleura: There is no evidence of pleural effusion, focal consolidation, or pneumothorax. Pulmonary vascularity: Unremarkable. Heart/mediastinum: Cardiomediastinal silhouette is unremarkable. Musculoskeletal: Degenerative changes of the shoulder joints. Other findings: None Lines/Tubes: Right thoracotomy tube is present without evidence of pneumothorax. IMPRESSION: 1. Right thoracotomy tube without definitive pneumothorax visualized. 2. Low lung volumes with basilar atelectasis.
--- NOTE | 2023-09-24 14:41 | P.OP ---
Date of Procedure: 09/24/23 Preoperative Diagnosis: Interstitial Fibrosis Postoperative Diagnosis: Same Procedure(s) Performed: 1. Bronchoscopy 2. Right video assisted thorascopic surgery with lung and pleural biopsy 3. Intercostal nerve block - 2 levels Anesthesia: JESSIE Surgeon: Bud Balderas [employer] Moulding Machine Operator #1: Franklyn Rothman Estimated Blood Loss (ml): 10 Pathology: other (RUL,RML,RLL. All three lobes for culture. Pleural biopsy) Condition: stable Disposition: PACU Indications for Procedure: This patient is a 63 year-old M with progressive fibrosis on CT scan. He now requires lung biopsy. Operative Findings: Right lung normal in appearance. Two areas of the parietal pleura with plaque. Biopsy obtained. Description of Procedure: The patient was brought back to the operating room and placed in the supine position. General anesthesia was induced and he was intubated with a double lumen tube. Bronchoscopy was performed to check its position and for diagnostic purposes. The bilateral airways were normal without secretions or masses. The patient was then positioned in the left lateral decubitus position and his right chest was prepped and draped in the usual sterile fashion. I made a 2cm incision in the 7th intercostal space posterior axillary line and gained entry into the chest under direct vision. The lung appeared normal. I then made another 2cm incision in the 9th intercostal space mid axillary line. 0.25% marcaine was used to perform intercostal nerve block at both levels. A small wedge resection of each lobe was performed using serial firings of the endo DENIZ purple loads. A small piece from each specimen was sent for culture. A hook cautery was then used to peel off 1 of 2 pleural plaques on the chest wall. This was also sent to pathology. A 28F Chest tube was inserted via the anterior incision and the right lung was re-expanded. Posterior incision was closed in layers and glue. Patient was extubated.
[2023-09-24 15:26] LABS: Glucose,Whole Blood 102 mg/dL (70-110)
[2023-09-24] MEDS ORDERED: ONDANSETRON 4 MG/2 ML VIAL IVP PRN (15:53)
[2023-09-24] MEDS ORDERED: diphenhydrAMINE 25 MG CAP PO PRN (15:53)
[2023-09-24] MEDS ORDERED: DEXTROSE 50% SYRINGE 50 ML IVP PRN ×2 (15:53)
[2023-09-24] MEDS: DEXAMETHASONE SOD PHOSPHATE 4 MG/ML 1 ML VIAL IV ONE (16:23)
[2023-09-24] MEDS: traMADol 50 MG TAB PO PRN (16:28)
[2023-09-24] MEDS ORDERED: IBUPROFEN 800 MG TAB PO PRN (16:47)
[2023-09-24] MEDS: HYDROmorphone 1 MG/ML 1 ML SYRINGE IVP PRN (16:57)
[2023-09-24] MEDS: HEPARIN SODIUM,PORCINE 5,000 UNIT/ML 1 ML VIAL SQ SCH (18:22)
[2023-09-24] MEDS: KETOROLAC 15 MG/ML 1 ML VIAL IVP SCH (18:30)
[2023-09-24 18:35] LABS: Glucose,Whole Blood 105 mg/dL (70-110)
[2023-09-24] MEDS: INSULIN ASPART (NovoLOG) 100 UNIT/ML VIAL SQ SCH (18:35)
[2023-09-24] MEDS: SODIUM CHLORIDE 0.9% 1,000 ML IV SCH (19:25)
[2023-09-24] MEDS: ceFAZolin 3 GM in SODIUM CHLORIDE 0.9% 100 ML IVPB SCH (20:28)
[2023-09-24] MEDS: PANTOPRAZOLE 40 MG TABLET PO SCH (20:29)
[2023-09-24] MEDS: MONTELUKAST 10 MG TAB PO SCH (20:29)
[2023-09-24] MEDS: ATORVASTATIN 40 MG TAB PO SCH (20:29)
[2023-09-24] MEDS: metFORMIN 500 MG TAB PO SCH (20:29)
[2023-09-24] MEDS: LOSARTAN 25 MG TAB PO SCH (20:29)
[2023-09-24] MEDS: SYMBICORT 160-4.5 MCG INHALER INHALATION SCH (21:21)
[2023-09-24] MEDS: ALBUTEROL NEBULIZED 2.5 MG/3 ML INHALATION PRN (21:21)
[2023-09-24 21:36] LABS: Glucose,Whole Blood 128 mg/dL (70-110)
[2023-09-25] MEDS: LEVOTHYROXINE 75 MCG TAB PO SCH (05:29)
[2023-09-25 05:39] LABS: Glucose,Whole Blood 105 mg/dL (70-110)
[2023-09-25 08:00] LABS: African American GFR (CKD) >90 (>60 ml/min/1.73 sqM); Anion Gap 7 mmol/L; Blood Urea Nitrogen 13 mg/dL (9-20); Calcium 8.7 mg/dL (8.4-10.2); Carbon Dioxide 26 mmol/L (22-30); Chloride 100 mmol/L (98-107); Glucose 124 mg/dL (74-99); Non-African American GFR(CKD) >90 (>60 ml/min/1.73 sqM); Potassium 4.1 mmol/L (3.5-5.1); Sodium 133 mmol/L (137-145)
[2023-09-25 08:05] LABS: Basophils % (A) 1 %; Eosinophils # (A) 0.2 k/uL (0-0.7); Eosinophils % (A) 2 %; HCT 43.5 % (39.0-53.0); HGB 14.2 gm/dL (13.0-17.5); Lymphocytes # (A) 1.3 k/uL (1.0-4.8); Lymphocytes % (A) 14 %; MCH 31.7 pg (25.0-35.0); MCHC 32.6 g/dL (31.0-37.0); Mean Platelet Volume 7.4; Monocytes # (A) 0.7 k/uL (0-1.0); Monocytes % (A) 8 %; Neutrophils # (A) 6.4 k/uL (1.3-7.7); Neutrophils % (A) 74 %; Platelet Count 220 k/uL (150-450); RBC 4.46 m/uL (4.30-5.90); RDW 13.1 % (11.5-15.5); WBC 8.7 k/uL (3.8-10.6)
--- NOTE | 2023-09-25 08:07 | XR ---
EXAMINATION TYPE: XR chest 2V DATE OF EXAM: 09/25/2023 COMPARISON: 09/24/2023 INDICATION: Post lung biopsy TECHNIQUE: Frontal and lateral views of the chest are obtained. FINDINGS: The heart size is normal. The pulmonary vasculature is normal. Minimal increased lung markings are in the right perihilar region. Right-sided chest tube is present. Small right apical pneumothorax is present. This is increased from comparison. IMPRESSION: 1. Increasing small right apical pneumothorax. Right-sided chest tube remains in position
[2023-09-25 08:09] LABS: MCV 97.3 fL (80.0-100.0)
[2023-09-25 08:16] VITALS: RESP 18
[2023-09-25] MEDS: BISOPROLOL-HCTZ 10-6.25 MG 1 EACH TAB PO SCH (08:32)
[2023-09-25 11:24] LABS: Glucose,Whole Blood 102 mg/dL (70-110)
--- NOTE | 2023-09-25 12:08 | P.PN ---
Subjective Progress Note Date: 09/25/23 Principal diagnosis: Interstitial fibrosis with cough. Past medical history significant for hypertension, hyperlipidemia, hypothyroidism, diabetes mellitus type 2, asthma, GERD, influenza A in June 2023, and obesity with a BMI of 35.0 kg/m. POD #1 bronchoscopy, right video-assisted thoracoscopic surgery with lung and pleural biopsy, intercostal nerve blocks2 levels. The patient was seen and examined in follow-up today September 25, 2023 at his bedside on the fourth floor medical surgical unit. He is currently laying in bed, is awake, alert, oriented x 3 and in no acute apparent distress. Patient denies any complaints of shortness of breath at this time, although is c omplaining of some surgical type pain with taking a deep breath to his right shoulder, currently rating his pain 7 out of 10 on the pain scale. Oxygen saturations are 96% on room air and he is achieving around 1000 mL on his incentive spirometry with encouragement. Right pleural chest tube remains in place to waterseal. No air leak is present. Draining thin serosanguineous drainage with 160 mL output since surgery. Surgical pathology results remain pending. Chest x-ray results reviewed. Objective - Vital Signs Vital signs: Vital Signs Temp 98.8 F 09/25/23 07:40 Pulse 72 09/25/23 07:40 Resp 18 09/25/23 07:40 BP 110/65 09/25/23 07:40 Pulse Ox 94 L 09/25/23 07:40 FiO2 Intake & Output 09/24/23 09/25/23 09/25/23 18:59 06:59 18:59 Intake Total 1250 Output Total 0 Balance 1250 0 Weight 101.3 kg Intake: IV 1250 Output: Drainage 0 Right 0 Other: # Voids 1 - Exam CONSTITUTIONAL: Appears comfortable, cooperative, no acute distress RESPIRATORY: Lungs sounds diminished to his bases bilaterally. Respirations symmetrical, nonlabored. Currently on room air with oxygen saturation 96%. Able to achieve 1000 mL on his incentive spirometry. Strong cough. CARDIOVASCULAR: S1, S2 present. Regular rate and rhythm. Palpable peripheral pulses bilaterally. No edema present. No calf pain or tenderness noted. SCDs present. GASTROINTESTINAL: Abdomen soft, nontender, nondistended. Active bowel sounds present 4 quadrants. Tolerating diet. GENITOURINARY: Continues to void clear, yellow urine INTEGUMENTARY: Skin is warm and dry with no clubbing or cyanosis. Right thoracic incision well approximated and covered with dry intact dressing. NEUROLOGIC: Cranial nerves II through XII intact. MUSKULOSKELETAL: Able to move all extremities, strength equal bilaterally, gait normal. PSYCHIATRIC: Alert and oriented to person place and time, appropriate affect, intact judgment and insight. INVASIVE LINES AND TUBES: Right pleural chest tube present and is to waterseal, no air leak present. Right pleural chest tube with 160 mL thin serosanguineous drainage since surgery. - Allied health notes Allied health notes reviewed: nursing - Labs CBC & Chem 7: 09/25/23 07:27 09/25/23 07:27 Labs: Abnormal Lab Results - Last 24 Hours (Table) 09/24/23 09/25/23 Range/Units 21:34 07:27 Sodium 133 L (137-145) mmol/L Glucose 124 H (74-99) mg/dL POC Glucose (mg/dL) 128 H (70-110) mg/dL Microbiology - Last 24 Hours (Table) 09/24/23 13:50 Gram Stain - Preliminary Lung - Right Upper Lobe - Imaging and Cardiology Chest x-ray: report reviewed, image reviewed Assessment and Plan Assessment: Interstitial fibrosis, status post right video-assisted thoracoscopic surgery with lung and pleural biopsy Hypertension Hyperlipidemia Hypothyroidism Diabetes mellitus type 2 Asthma GERD History of influenza A in June 2023 Obesity with a BMI of 35.0 kg/m Plan: We remove his right pleural chest tube as there is no air leak, obtain a chest x-ray 2 hours after chest tube has been removed. Encourage use of incentive spirometry 10 times every hour while awake. Out of bed for all meals. Increase activity as tolerated. Encourage ambulation. Continue to follow pathology results. Likely follow-up with pathology results as an outpatient. Pain control per current as needed orders. GI and DVT prophylaxis. Discharge planning is in place, anticipate discharge home within the next 24 hours. More recommendations to follow based on patient's clinical course. Time with Patient: Greater than 30
--- NOTE | 2023-09-25 12:34 | XR ---
EXAMINATION TYPE: XR chest 2V DATE OF EXAM: 09/25/2023 COMPARISON: 09/25/2023 earlier exam INDICATION: Pneumothorax, post chest tube removal TECHNIQUE: Frontal and lateral views of the chest are obtained. FINDINGS: The heart size is normal. The pulmonary vasculature is normal. The lungs are clear. No pneumothorax is evident post chest tube. Small amount of subcutaneous air is present at the right lateral chest base IMPRESSION: 1. No acute pulmonary process. 2. No pneumothorax
[2023-09-25 13:42] VITALS: BP 105/66; PULSE 66; TEMP 98.9
--- NOTE | 2023-09-25 14:19 | P.DS ---
Providers Date of admission: 09/24/23 10:33 Expected date of discharge: 09/25/23 Attending physician: Bud Balderas MD Primary care physician: Kapil Alcazar [facility] Course: FINAL DIAGNOSIS: Interstitial fibrosis, status post right video-assisted thoracoscopic surgery with lung and pleural biopsy Hypertension Hyperlipidemia Hypothyroidism Diabetes mellitus type 2 Asthma GERD History of influenza A in June 2023 Obesity with a BMI of 35.0 kg/m Lifelong non-smoker PRINCIPAL PROCEDURE: 1. Bronchoscopy 2. Right video assisted thorascopic surgery with lung and pleural biopsy 3. Intercostal nerve block - 2 levels HISTORY OF PRESENT ILLNESS: This is 63-year-old gentleman who follows on outpatient basis with Dr. Alcazar for his primary care and with Dr. Ron Armstrong for his pulmonology care. Recently, the patient has had complaints of progressive shortness of breath, a persistent nonproductive cough, and an x-ray showing slightly increased bibasilar patchy airspace opacities concerning for pneumonia. He was hospitalized in June 2023 for influenza a. In July 20[address] the patient [address] a CT scan of his chest without contrast which demonstrated development of bilateral upper and lower lobe increased linear lung markings, greater in the lower lung yanez, bronchiectasis, and consideration for pulmonary fibrosis. The patient also had a CT scan of his chest in 2018 which the above-mentioned findings were not present. Due to the findings on the CT scan completed in July 2023 he was referred to Dr. Bud Balderas for further evaluation and treatment recommendations including lung biopsy. The patient and his met with Dr. Balderas, Dr. Balderas discussed the findings on the above-mentioned studies, treatment options were discussed including right video- assisted thoracoscopic surgery with lung and pleural biopsy. Risks and benefits of surgery were discussed and knowing and understanding the risks the patient wished to proceed with the surgical option. HOSPITAL COURSE: The patient was brought to the hospital on 09/24/23, taken to the preoperative area, prepared in the usual fashion, and subsequently taken to the operating room where Dr. Balderas performed right video-assisted thoracoscopic surgery with lung and pleural biopsy. Upon completion of surgery the patient was extubated and taken to the recovery room for further monitoring. There was no airleak in his chest tube and it was placed to waterseal the day of surgery. He was subsequently admitted to [address] [place] [address] surgical unit for further recovery and hemodynamic monitoring. The following morning chest x-ray was stable, there was no air leak in his chest tube and it was discontinued without incident. Follow- up chest x-ray was stable. His oxygen was titrated down, he was tolerating oral diet, his pain was controlled, and he was ready to be discharged to home on postoperative day #1. He received written and verbal instruction regarding his medications, activity restrictions, signs and symptoms requiring physician notification, and follow-up appointments. Plan - Discharge Summary Discharge Rx Participant: No New Discharge Prescriptions: Continue Levothyroxine Sodium 150 mcg PO DAILY Bisoprolol/Hydrochlorothiazide [Bisoprolol-Hctz 10-6.25 mg Tab] 1 tab PO QAM Omeprazole [PriLOSEC] 20 mg PO HS Ibuprofen [Motrin] 800 mg PO HS PRN PRN Reason: Pain Losartan [Cozaar] 75 mg PO HS Budesonide-Formot 160-4.5 Mcg [Symbicort 160-4.5 Mcg Inhaler] 2 puff INHALATION BID metFORMIN HCL 500 mg PO HS Albuterol Sulfate [Albuterol Sulfate Hfa] 2 puff PO RT-QID PRN PRN Reason: Shortness Of Breath Montelukast [Singulair] 10 mg PO HS diphenhydrAMINE [Benadryl] 25 mg PO HS PRN PRN Reason: allergies Rosuvastatin Calcium 20 mg PO HS Discharge Medication List Bisoprolol/Hydrochlorothiazide [Bisoprolol-Hctz 10-6.25 mg Tab] 1 tab PO QAM 09/08/17 [History] Levothyroxine Sodium 150 mcg PO DAILY 09/08/17 [History] Albuterol Sulfate [Albuterol Sulfate Hfa] 2 puff PO RT-QID PRN 07/21/23 [History] Budesonide-Formot 160-4.5 Mcg [Symbicort 160-4.5 Mcg Inhaler] 2 puff INHALATION BID 07/21/23 [History] Ibuprofen [Motrin] 800 mg PO HS PRN 07/21/23 [History] Losartan [Cozaar] 75 mg PO HS 07/21/23 [History] Montelukast [Singulair] 10 mg PO HS 07/21/23 [History] Omeprazole [PriLOSEC] 20 mg PO HS 07/21/23 [History] metFORMIN HCL 500 mg PO HS 07/21/23 [History] Rosuvastatin Calcium 20 mg PO HS 09/18/23 [History] diphenhydrAMINE [Benadryl] 25 mg PO HS PRN 09/18/23 [History] Follow up Appointment(s)/Referral(s): Kapil Alcazar DO [Primary Care Provider] - As Needed Ron Armstrong DO [Doctor of Osteopathic Medicine] - 10/03/23 3:15 pm Bud Balderas MD [STAFF PHYSICIAN] - 10/06/23 2:00 pm Activity/Diet/Wound Care/Special Instructions: DISCHARGE INSTRUCTIONS: 1. No driving for 2 weeks, or until physician gives their ok. 2. No lifting, pushing, or pulling more than 10 pounds for 2 weeks. The physician will advise of any restriction changes. 3. Continue pain control per as needed orders. Alternate acetaminophen (Tylenol) and ibuprofen (Motrin/Advil) for pain. 4. Continue with incentive spirometry and splinting until otherwise directed by the physician. 5. Leave chest tube dressing for 48 hours. After that, remove all dressings and shower daily. 6. Routine incision care. No powders, lotions, ointments on incisions. 7. Please call surgeon/END FRAZER for temp greater than 101 F or purulent drainage from incisions. 8. Please call [phone] Dr. Balderas's office for further questions. Discharge Disposition: HOME SELF-CARE
== END 2023-09-25 15:36 | disposition home or self-care (01) | DRG 168 ==
LOC: 2ORMAIN 10:33 → 4SSUR 15:16
PROVIDERS: ADMIT Thoracic Surgery (Cardiothoracic Vascular Surgery); ATTEND Thoracic Surgery (Cardiothoracic Vascular Surgery)
PROC: 0BBD4ZX Excision of Right Middle Lung Lobe, Percutaneous Endoscopic Approach, Diagnostic (ICD-10-PCS; principal; 2023-09-24 12:30)
PROC: 0BBF4ZX Excision of Right Lower Lung Lobe, Percutaneous Endoscopic Approach, Diagnostic (ICD-10-PCS; principal; 2023-09-24 12:30)
PROC: 0BBN4ZX Excision of Right Pleura, Percutaneous Endoscopic Approach, Diagnostic (ICD-10-PCS; principal; 2023-09-24 12:30)
PROC: 0BJ08ZZ Inspection of Tracheobronchial Tree, Via Natural or Artificial Opening Endoscopic (ICD-10-PCS; principal; 2023-09-24 12:30)
PROC: 0BBC4ZX Excision of Right Upper Lung Lobe, Percutaneous Endoscopic Approach, Diagnostic (ICD-10-PCS; principal; 2023-09-24 12:30)
DX: J84.10 Pulmonary fibrosis, unspecified (principal); I10 Essential (primary) hypertension; E03.9 Hypothyroidism, unspecified; E11.9 Type 2 diabetes mellitus without complications; J45.909 Unspecified asthma, uncomplicated; E66.9 Obesity, unspecified; Z68.35 Body mass index [BMI] 35.0-35.9, adult; J47.9 Bronchiectasis, uncomplicated; E78.5 Hyperlipidemia, unspecified; K21.9 Gastro-esophageal reflux disease without esophagitis; Z79.51 Long term (current) use of inhaled steroids; Z79.890 Hormone replacement therapy; Z79.84 Long term (current) use of oral hypoglycemic drugs; Z79.899 Other long term (current) drug therapy
CPT/HCPCS: 71045; 71046; 80048; 85025; 87070; 87075; 87205; 88305; 88307; 94640

== ENCOUNTER → 2023-11-01 | Outpatient (CLI) | payer MEDICARE ==
[2023-11-01 13:27] LABS: ALT 23 U/L (10-49); AST 24 U/L (14-35); Albumin 4.4 g/dL (3.8-4.9); Albumin/Globulin Ratio 1.91 Ratio (1.60-3.17); Alkaline Phosphatase 104 U/L (41-126); Bilirubin, Conjugated <0.20 mg/dL (0.20-0.40); Bilirubin,Unconjugated >0.20 mg/dL (0.20-1.00); Globulin 2.3 g/dL (1.6-3.3); Total Bilirubin 0.4 mg/dL (0.3-1.2); Total Protein 6.7 g/dL (6.2-8.2)
== END | disposition home or self-care (01) ==
LOC: LABWHC1 09:21
PROVIDERS: ATTEND Internal Medicine Critical Care Medicine
DX: J84.9 Interstitial pulmonary disease, unspecified (principal)
CPT/HCPCS: 36415; 80076

== ENCOUNTER → 2024-02-16 | Outpatient (CLI) | payer MEDICARE ==
--- NOTE | 2024-02-16 14:17 | CT ---
EXAMINATION TYPE: CT chest wo con DATE OF EXAM: 02/16/2024 COMPARISON: 08/19/2023 HISTORY: ILD CT DLP: 1370.2 mGycm. Automated Exposure Control for Dose Reduction was Utilized. TECHNIQUE: CT scan of the thorax is performed without IV contrast. FINDINGS: There are persistent mild subpleural parenchymal interstitial densities with mild bronchiectasis with a lower lobe predominance. The partially consolidative and groundglass densities in the perihilar re gions and posterior lower lobes has resolved in the interval. There is no groundglass opacity, honeycombing or atelectasis. There is no airspace consolidation. There is no pleural effusion or pneumothorax. There is stable mild aneurysmal dilatation of the ascending thoracic aorta which measures 3.9 cm. The re is no mediastinal, hilar or axillary adenopathy. Limited scanning through the upper abdomen reveals no gross abnormalities. IMPRESSION: 1. Mild chronic interstitial changes. There has been interval resolution of the partially consolidate d/groundglass opacities as described above. 2. no suspicious lung mass or nodule. 3. Stable 3.9 cm aneurysmal dilatation of ascending thoracic aorta. 4. No mediastinal or hilar adenopathy. 5. No acute cardiopulmonary disease.
== END | disposition home or self-care (01) ==
LOC: RADCTMAIN 13:45
PROVIDERS: ATTEND Internal Medicine Critical Care Medicine
DX: J84.9 Interstitial pulmonary disease, unspecified
CPT/HCPCS: 71250

== ENCOUNTER → 2025-01-19 | Outpatient (CLI) | payer MEDICARE ==
--- NOTE | 2025-01-19 10:59 | CT ---
EXAMINATION TYPE: CT chest wo con DATE OF EXAM: 01/19/2025 10:46 AM COMPARISON: None. CLINICAL INDICATION: Male, 64 years old with history of J84.9 INTERSTITIAL LUNG DISEASE, interstitial lung disease, TECHNIQUE: High-resolution noncontrast CT of the chest was performed with the patient in the prone an d supine positions. Lung and mediastinal window settings are submitted. CT DLP: 1579 mGycm, Automated exposure control for dose reduction was used. FINDINGS: There is scattered subpleural fibrosis noted. I also Note several scattered calcified granulomas. No suspicious masses seen. Mild bronchial wall thickenin g and minimal bronchiectasis at the lung bases. No evidence for focal consolidation or concerning mas s. No pneumothorax or pleural effusion seen. IMPRESSION: 1. Scattered subpleural fibrosis as noted. 2. Remote granulomatous disease. 3. Mild bronchial wall thickening and mild lower lobe bronchiectasis. [facility], , 01/19/2025 10:57 AM
== END | disposition home or self-care (01) ==
LOC: RADCTMAIN 10:26
PROVIDERS: ATTEND Internal Medicine Critical Care Medicine
DX: J84.9 Interstitial pulmonary disease, unspecified (principal); J47.9 Bronchiectasis, uncomplicated; J98.09 Other diseases of bronchus, not elsewhere classified
CPT/HCPCS: 71250